=== PATIENT | female | born 1960 | race Caucasian/White ===

== ENCOUNTER 2018-06-17 03:30 | Inpatient (IN) ==
--- NOTE | 2018-06-17 04:30 | XR ---
EXAM DATE: 06/17/2018 4:26 AM EDT AGE/SEX: 58 years / Female INDICATIONS: Chest pain. CLINICAL DATA: This is the patient's initial encounter. Patient reports that signs and symptoms have been present for 1 day and indicates a pain score of 8/10. MEDICAL/SURGICAL HISTORY: . CAD. Coronary artery stent. COMPARISON: No prior exams available for comparison. FINDINGS: A single AP view of the chest demonstrates the lungs to be symmetrically aerated without evidence of mass, infiltrate or effusion. The cardiomediastinal contours are unremarkable. Osseous structures a re intact. CONCLUSION: No evidence of acute cardiopulmonary disease. Electronically signed by: Arthur Saucedo MD 06/17/2018 4:29 AM EDT
[2018-06-17 04:41] LABS: Baso % (Auto) 0.6 % (0.0-2.0); Eos # (Auto) 0.1 th/mm3 (0.0-0.4); Eos % (Auto) 2.6 % (0.0-4.0); Hematocrit 36.4 % (35.0-46.0); Hemoglobin 11.8 gm/dL (11.6-15.3); Lymph # (Auto) 1.6 th/mm3 (1.0-4.8); Lymph % (Auto) 28.7 % (9.0-44.0); Mean Corpuscular HGB Conc 32.3 % (32.0-36.0); Mean Corpuscular Hemoglobin 26.6 pg (27.0-34.0); Mean Corpuscular Volume 82.3 fL (80.0-100.0); Mean Platelet Volume 7.9 fL (7.0-11.0); Mono # (Auto) 0.4 th/mm3 (0.0-0.9); Mono % (Auto) 7.6 % (0.0-8.0); Neut # (Auto) 3.4 th/mm3 (1.8-7.7); Neut % (Auto) 60.5 % (16.0-70.0); Platelet Count 237 th/mm3 (150-450); Red Blood Count 4.43 mil/mm3 (4.00-5.30); Red Cell Distribution Width 18.3 % (11.6-17.2); White Blood Count 5.7 th/mm3 (4.0-11.0)
[2018-06-17 04:59] LABS: Alanine Aminotransferase 29 U/L (10-53); Albumin 3.6 g/dL (3.4-5.0); Anion Gap 9 meq/L (5-15); Aspartate Aminotransferase 18 U/L (15-37); Blood Urea Nitrogen 16 mg/dL (7-18); Calcium 8.2 mg/dL (8.5-10.1); Carbon Dioxide 25.5 meq/L (21.0-32.0); Chloride 110 meq/L (98-107); Glomerular Filtration Rate 44 mL/min (>89); Glucose,Random 147 mg/dL (74-106); Potassium 3.9 meq/L (3.5-5.1); Sodium 144 meq/L (136-145)
[2018-06-17 05:05] LABS: Alkaline Phosphatase 96 U/L (45-117); Total Protein 6.7 g/dL (6.4-8.2); Troponin I 0.35 ng/mL (0.02-0.05)
[2018-06-17] MEDS ORDERED: Heparin 10,000 UNITS/10 ML Vial (for IV use) IV.PUSH STA (05:18)
[2018-06-17] MEDS ORDERED: Heparin Drip 25,000 UNIT/250 ML BAG IV.CONT PRN (05:18)
--- NOTE | 2018-06-17 05:24 | ED ---
HPI General Chief Complaint: Chest Pain Stated Complaint: Chest pain Time Seen by Provider: 06/17/18 05:04 Source: patient Mode of arrival: ambulatory Limitations: no limitations History of Present Illness HPI narrative: 58-year-old female complains of chest pain retrosternal left chest and left neck with radiation to left arm. Is very mild in the ED and has a pressure-like quality. She reports a history of coronary artery disease with multiple stents. The last catheterization was about 10 years prior. She reports compliance with aspirin daily. She has been taking nitro today which has helped the pain. She reports an exertional component of the chest pain. No shortness of breath at rest. Her level of activity has been decreased from normal due to fatigue and chest pain. No cough or fever. No nausea or vomiting. Symptoms became much worse this evening prompting the ED evaluation MD complaint: chest pain STEMI Alert: No Onset (ago): day(s) Duration: improved Onset: during rest Pain location: substernal and left chest Severity: mild Quality: heaviness Pain radiation: LUE and neck Relieving factors: nitroglycerin Exacerbating factors: exertion and movement Treatments prior to arrival chest pain: aspirin and nitroglycerin Related Data Home Medications Medication Instructions Recorded Confirmed albuterol sulfate 2 puff INHALATION Q4-6H PRN 06/17/18 06/17/18 aspirin [Aspirin Childrens] 81 mg PO DAILY 06/17/18 06/17/18 fexofenadine-pseudoephedrine 1 tab PO Q12H PRN 06/17/18 06/17/18 [Georgette-D 12 Hour] irbesartan 300 mg PO DAILY 06/17/18 06/17/18 meclizine 25 mg PO TID PRN 06/17/18 06/17/18 metformin 500 mg PO BID 06/17/18 06/17/18 metoprolol tartrate 25 mg PO DAILY 06/17/18 06/17/18 nitroglycerin 0.4 mg SUBLINGUAL Q5-15M PRN 06/17/18 06/17/18 omeprazole 40 mg PO DAILY 06/17/18 06/17/18 ranitidine HCl 300 mg PO DAILY 06/17/18 06/17/18 rosuvastatin 10 mg PO DAILY 06/17/18 06/17/18 sertraline 100 mg PO DAILY 06/17/18 06/17/18 temazepam 15 mg PO HS PRN 06/17/18 06/17/18 timolol 1 drp OPHTHALMIC (EYE) BID 06/17/18 06/17/18 vitamin S77-wrvcq acid 1 mg PO DAILY 06/17/18 06/17/18 Allergies Allergy/AdvReac Type Severity Reaction Status Date / Time cephalexin [From Keflex] Allergy Rash Verified 06/17/18 03:48 gatifloxacin Allergy Anaphylaxis Verified 06/17/18 03:48 meperidine Allergy Vomiting Verified 06/17/18 03:48 nabumetone Allergy Edema Verified 06/17/18 03:48 simvastatin Allergy Anaphylaxis Verified 06/17/18 03:48 Sulfa (Sulfonamide Allergy Rash Verified 06/17/18 03:48 Antibiotics) Review of Systems ROS: all other systems reviewed are negative [facility] Medical History Medical History Hx of renal cell cancer (Acute) Hypertension (Acute) Surgical History Surgical History H/O heart artery stent (Acute) H/O partial nephrectomy (Acute) Social History Social History Substance History: No History of Abuse Second Hand Smoke Exposure: No Smoking Status: Never smoker How Often Do You Have a Drink Containing Alcohol: Monthly or less [facility] within the Last 8 Weeks: No Recent Out of Country Travel within the Last 8 Weeks: No Immunization History Tetanus Immunization: >5 Years Hx Influenza Vaccine This Season: No Exam Narrative Exam Narrative: GENERAL: 58-year-old female no acute distress pleasant well- nourished well-developed SKIN: Focused skin assessment warm/dry. HEAD: Atraumatic. Normocephalic. EYES: Pupils equal and round. No scleral icterus. No injection or drainage. ENT: No nasal bleeding or discharge. Mucous membranes pink and moist. NECK: Trachea midline. No JVD. CARDIOVASCULAR: Regular rate and rhythm. No murmur appreciated. RESPIRATORY: No accessory muscle use. Clear to auscultation. Breath sounds equal bilaterally. GASTROINTESTINAL: Abdomen soft, non-tender, nondistended. Hepatic and splenic margins not palpable. MUSCULOSKELETAL: No obvious deformities. No clubbing. No cyanosis. No edema. NEUROLOGICAL: Awake and alert. No obvious cranial nerve deficits. Motor grossly within normal limits. Normal speech. PSYCHIATRIC: Appropriate mood and affect; insight and judgment normal. Course Initial Documented Vital Signs Temperature 97.8 F 06/17/18 03:42 Pulse Rate 59 L 06/17/18 03:42 Respiratory Rate 18 06/17/18 03:42 Blood Pressure 186/81 H 06/17/18 03:42 Pulse Oximetry 98 06/17/18 03:42 Last Documented Vital Signs Temperature 97.8 F 06/17/18 03:42 Pulse Rate 58 L 06/17/18 06:02 Respiratory Rate 17 06/17/18 05:20 Blood Pressure 173/81 H 06/17/18 05:20 Pulse Oximetry 98 06/17/18 05:20 Critical Care Time Critical Care Time: Yes Total Critical Care Time: 35 Attestation: Aggregate critical care time was 35 minutes. Time to perform other separately billable procedures was not included in the critical care time. My time did not include minutes spent treating any other patients simultaneously or on activities that did not directly contribute to the patient's treatment. The services I provided to this patient were to treat and/or prevent clinically significant deterioration that could result in: Cardiopulmonary arrest, permanent disability due to myocardial injury I provided critical care services requiring my management, as noted below: Chart data review, documentation time, medication orders and management, vital sign assessments/reviewing monitor data, ordering and reviewing lab tests, ordering and interpreting/reviewing x-rays and diagnostic studies, care of the patient and discussion of the patient with the admitting physicians. Medical Decision Making MDM Narrative Medical decision making narrative: 58-year-old female with chest pain coronary artery disease history and elevated troponin 0.35. Heparin started. The patient will be admitted for treatment of NSTEMI. Nitro and ASA started prior to ED arrival. Case discussed with Dr. Snow. Patient is in no acute distress in the ED. She states her pain is very mild here. Medical Screen Exam Complete: Yes Emergency Medical Condition: Yes Differential Diagnosis Differential Diagnosis: NSTEMI, unstable angina, coronary vasospasm, PE, PTX, aortic dissection, pericarditis, myocarditis, endocarditis, PNA, esophageal disease, aneurysm, musculoskeletal etiologies, anxiety, cocaine/sympathomimetic abuse Lab Data Lab results reviewed: Yes I reviewed the patient's lab results. Lab results narrative: Troponin is 0.35 Result diagrams: 06/17/18 04:15 06/17/18 04:15 Lab Results 06/17/18 06/17/18 06/17/18 Range/Units 04:15 04:15 05:15 WBC 5.7 (4.0-11.0) th/mm3 RBC 4.43 (4.00-5.30) mil/mm3 Hgb 11.8 (11.6-15.3) gm/dL Hct 36.4 (35.0-46.0) % MCV 82.3 (80.0-100.0) fL MCH 26.6 L (27.0-34.0) pg MCHC 32.3 (32.0-36.0) % RDW 18.3 H (11.6-17.2) % Plt Count 237 (150-450) th/mm3 MPV 7.9 (7.0-11.0) fL Neut % (Auto) 60.5 (16.0-70.0) % Lymph % (Auto) 28.7 (9.0-44.0) % [place] % (Auto) 7.6 (0.0-8.0) % Eos % (Auto) 2.6 (0.0-4.0) % Baso % (Auto) 0.6 (0.0-2.0) % Neut # (Auto) 3.4 (1.8-7.7) th/mm3 Lymph # (Auto) 1.6 (1.0-4.8) th/mm3 [place] # (Auto) 0.4 (0.0-0.9) th/mm3 Eos # (Auto) 0.1 (0.0-0.4) th/mm3 Baso # (Auto) 0.0 (0.0-0.2) th/mm3 WBC Differential . Differential Comment Auto diff final PT 9.6 L (9.8-11.6) sec INR 0.9 Ratio APTT 24.4 (24.3-30.1) sec Sodium 144 (136-145) meq/L Potassium 3.9 (3.5-5.1) meq/L Chloride 110 H (98-107) meq/L Carbon Dioxide 25.5 (21.0-32.0) meq/L Anion Gap 9 (5-15) meq/L BUN 16 (7-18) mg/dL Creatinine 1.24 H (0.50-1.00) mg/dL Estimated GFR 44 L (>89) mL/min Random Glucose 147 H (74-106) mg/dL Calcium 8.2 L (8.5-10.1) mg/dL Total Bilirubin 0.3 (0.2-1.0) mg/dL AST 18 (15-37) U/L ALT 29 (10-53) U/L Alkaline Phosphatase 96 (45-117) U/L Troponin I 0.35 H (0.02-0.05) ng/mL Total Protein 6.7 (6.4-8.2) g/dL Albumin 3.6 (3.4-5.0) g/dL Imaging Data Radiologist's impression: Chest X-Ray 06/17/18 04:08 CONCLUSION: No evidence of acute cardiopulmonary disease. ECG Data Attestation: I personally reviewed and interpreted this ECG as follows: (EKG shows a sinus rhythm with normal axis intervals and a rate of 54 no acute ischemic injury pattern) Discharge Plan Discharge Disposition Patient Disposition: 30 Still Patient Physicians Team ED Provider: Aj Neal Primary Care Provider: UNKNOWN, Rxs /Orders / Referrals /Forms Prescriptions: No Action metformin 500 mg Tablet 500 mg PO BID RF: 0 ranitidine HCl 300 mg Tablet 300 mg PO DAILY RF: 0 sertraline 100 mg Tablet 100 mg PO DAILY RF: 0 omeprazole 40 mg Capsule,Delayed Release(Dr/Ec) 40 mg PO DAILY RF: 0 temazepam 15 mg Capsule 15 mg PO HS PRN (Reason: Insomnia) RF: 0 meclizine 25 mg Tablet 25 mg PO TID PRN (Reason: Dizziness) RF: 0 timolol 0.5 % Drops 1 drp OPHTHALMIC (EYE) BID RF: 0 nitroglycerin 0.4 mg Tablet, Sublingual 0.4 mg SUBLINGUAL Q5-15M PRN (Reason: Chest Pain) RF: 0 aspirin [Aspirin Childrens] 81 mg Tablet,Chewable 81 mg PO DAILY RF: 0 fexofenadine-pseudoephedrine [Georgette-D 12 Hour] 60-120 mg Tablet Extended Release 12 Hr 1 tab PO Q12H PRN (Reason: Allergic Reaction) RF: 0 irbesartan 300 mg Tablet 300 mg PO DAILY RF: 0 rosuvastatin 10 mg Tablet 10 mg PO DAILY RF: 0 metoprolol tartrate 25 mg Tablet 25 mg PO DAILY RF: 0 vitamin D13-vnnih acid 0.5-1 mg Tablet 1 mg PO DAILY RF: 0 albuterol sulfate 90 mcg/actuation Aerosol Powdr Breath Activated 2 puff INHALATION Q4-6H PRN (Reason: Shortness Of Breath) RF: 0 Discharge Instructions Patient Printed Instructions: Chest Pain (ED) Status ED Status: With Doctor
[2018-06-17] MEDS ORDERED: Bisacodyl 10 MG Supp RECTAL PRN (05:56)
[2018-06-17] MEDS ORDERED: Temazepam 15 MG Capsule PO PRN (05:57)
[2018-06-17] MEDS ORDERED: Dextrose 50% in Water 50 ML Vial IV.PUSH PRN (05:58)
[2018-06-17 06:04] LABS: Activated Partial Thrombo Time 24.4 sec (24.3-30.1); INR 0.9 Ratio; Prothrombin Time 9.6 sec (9.8-11.6)
--- NOTE | 2018-06-17 09:09 | P.HPIM ---
History of Present Illness Primary Care Physician: UNKNOWN Chief Complaint: chest pain History of Present Illness: patient is a 58 y/o female with history of CAD- s/p stent placement,hypertension , dyslipidemia.diabetes mellitus and kidney cancer, presented to ER with chest pain. she says that she's had substernal chest pain for the past three days but yesterday when she was walking her dog the pain got worse and had some radiation to the left arm which made her to seek medical attention. she had some sob but denies nausea,vomiting, or diaphoresis. she was pain free at the time of my evaluation. Inpatient Certification: I certify that the inpatient services were ordered in accordance with Medicare regulations governing the order. This includes certification that hospital inpatient services are reasonable and necessary and in the case of services not specified as inpatient-only under 42 CFR 419.22(n), that they are appropriately provided as inpatient services in accordance to with the 2-midnight benchmark under 43 CFR 412.3(e) Estimated Total Length of Stay (Days): 2 Plans for Post Hospital Care: Not yet determined Review of Systems All other systems reviewed negative except as stated in HPI PMFSH - History History Provided By: Patient - Medical History Medical History: Medical History (Last Reviewed 06/17/18 @ 09:05 by Juan Manuel Moody MD) Diabetes mellitus Dyslipidemia Hx of renal cell cancer Hypertension - Surgical History Surgical History: Surgical History (Last Reviewed 06/17/18 @ 09:05 by Juan Manuel Moody MD) H/O heart artery stent H/O partial nephrectomy - Family History Family History: Family History (Last Updated 06/17/18 @ 09:05 by Juan Manuel Moody MD) Other Family history of acute myocardial infarction - Social History I have reviewed the patient's Social History: Yes - Tobacco History Second Hand Smoke Exposure: No Tobacco Use In Past 30 Days: No Smoking Status: Never smoker - Alcohol History How Often Do You Have a Drink Containing Alcohol: Monthly or less - Substance Use History Substance History: No History of Abuse - Travel History Recent Travel in the [place] Within the Last 8 Weeks: No Recent Travel Out of the Country Within the Last 8 Weeks: No - Immunization History Tetanus Immunization: >5 Years Hx Influenza Vaccine This Season: No Medications and Allergies Active Medications: Active Medications Acetaminophen (Tylenol) 650 mg PO Q4H PRN PRN Reason: Temp > 100.4 Al Hydroxide/Mg Hydroxide (Milk Of Magnesia Liq) 30 ml PO Q12H PRN PRN Reason: Mild Constipation Aspirin (Aspirin Chew) 81 mg PO DAILY [facility] Bisacodyl (Dulcolax Supp) 10 mg RECTAL DAILY PRN PRN Reason: SEVERE CONSITIPATION Cyanocobalamin (Vitamin B12) 100 mcg PO DAILY [facility] Dextrose (D50w Vial) 50 ml IV.PUSH UNSCH PRN PRN Reason: PER HYPOGLYCEMIA PROTOCOL Glucagon (Glucagon Inj) 1 mg OTHER PRN PRN PRN Reason: for Hypoglycemia Protocol Heparin Sodium/Dextrose (Heparin/D5w 25,000 U/250 Ml) 25,000 unit in 250 mls @ 0 mls/hr IV.CONT TITRATE PRN; Protocol PRN Reason: Per Protocol Last Admin: 06/17/18 06:11 Dose: 1,000 units/hr, 10 mls/hr Sodium Chloride (Ns Inj) 1,000 mls @ 100 mls/hr IV.CONT .Q10H [facility] Insulin Aspart (Novolog Insulin Correctional Sugar Inj) 0 unit SQ ACHS FRANCK; Protocol Lactulose (Lactulose Liq) 30 ml PO DAILY PRN PRN Reason: SEVERE CONSITIPATION Metoprolol Tartrate (Lopressor) 25 mg PO DAILY [facility] Morphine Sulfate (Morphine Inj) 2 mg IV.PUSH Q4H PRN PRN Reason: PAIN 6-10 Nitroglycerin (Nitro-Bid 2% Oint) 0.5 inch TOPICAL Q6HR PRN PRN Reason: CHEST PAIN Ondansetron HCl (Zofran Inj) 4 mg IV.PUSH Q6H PRN PRN Reason: NAUSEA OR VOMITING Pantoprazole Sodium (Protonix) 40 mg PO DAILY [facility] Pt Own Crestor 10 Mg 0 each PO DAILY [facility] Senna/Docusate Sodium (Ning-Colace) 1 tab PO BID [facility] Sennosides (Senokot) 17.2 mg PO Q12H PRN PRN Reason: Moderate Constipation Sertraline HCl (Zoloft) 100 mg PO DAILY [facility] Temazepam (Restoril) 15 mg PO HS PRN PRN Reason: Insomnia Timolol Maleate (Timoptic 0.5% Drops) 1 drops EACH EYE BID [facility] Allergies Allergy/AdvReac Type Severity Reaction Status Date / Time cephalexin [From Keflex] Allergy Rash Verified 06/17/18 03:48 gatifloxacin Allergy Anaphylaxis Verified 06/17/18 03:48 meperidine Allergy Vomiting Verified 06/17/18 03:48 nabumetone Allergy Edema Verified 06/17/18 03:48 simvastatin Allergy Anaphylaxis Verified 06/17/18 03:48 Sulfa (Sulfonamide Allergy Rash Verified 06/17/18 03:48 Antibiotics) Home Medications Medication Instructions Recorded Confirmed Type albuterol sulfate 2 puff INHALATION Q4-6H PRN 06/17/18 06/17/18 History aspirin [Aspirin Childrens] 81 mg PO DAILY 06/17/18 06/17/18 History fexofenadine-pseudoephedrine 1 tab PO Q12H PRN 06/17/18 06/17/18 History [Georgette-D 12 Hour] irbesartan 300 mg PO DAILY 06/17/18 06/17/18 History meclizine 25 mg PO TID PRN 06/17/18 06/17/18 History metformin 500 mg PO BID 06/17/18 06/17/18 History metoprolol tartrate 25 mg PO DAILY 06/17/18 06/17/18 History nitroglycerin 0.4 mg SUBLINGUAL Q5-15M PRN 06/17/18 06/17/18 History omeprazole 40 mg PO DAILY 06/17/18 06/17/18 History ranitidine HCl 300 mg PO DAILY 06/17/18 06/17/18 History rosuvastatin 10 mg PO DAILY 06/17/18 06/17/18 History sertraline 100 mg PO DAILY 06/17/18 06/17/18 History temazepam 15 mg PO HS PRN 06/17/18 06/17/18 History timolol 1 drp OPHTHALMIC (EYE) BID 06/17/18 06/17/18 History vitamin S13-dmaam acid 1 mg PO DAILY 06/17/18 06/17/18 History Exam Vital signs: Vital Signs 06/17/18 03:42 06/17/18 04:14 06/17/18 05:20 Temperature 97.8 F Pulse Rate 59 L 55 L 53 L Respiratory Rate 18 17 Blood Pressure 186/81 H 173/81 H Pulse Oximetry 98 98 98 06/17/18 06:02 06/17/18 06:06 06/17/18 07:05 Temperature Pulse Rate 58 L 54 L Respiratory Rate 17 Blood Pressure 160/70 H Pulse Oximetry 98 96 Intake & Output 06/16/18 06/17/18 06/17/18 18:59 06:59 18:59 Weight 91.626 kg Other: # Voids 1 - Constitutional no acute distress - Routine HEENT Exam Eye: Present: PERRL - Routine Neck Exam Present: supple - Routine Respiratory Exam Present: CTA bilaterally - Routine Cardiovascular Exam Present: RRR - Routine Abdominal Exam Present: soft - Routine Extremities Exam Comments: no pedal edema. - Routine Neurological Exam Present: alert, oriented X3 Results - Labs CBC & Chem 7: 06/17/18 08:45 06/17/18 04:15 Labs: Short CBC 06/17/18 Range/Units 04:15 WBC 5.7 (4.0-11.0) th/mm3 Hgb 11.8 (11.6-15.3) gm/dL Hct 36.4 (35.0-46.0) % Plt Count 237 (150-450) th/mm3 BMP 06/17/18 04:15 Sodium 144 Potassium 3.9 Chloride 110 H Carbon Dioxide 25.5 BUN 16 Creatinine 1.24 H Calcium 8.2 L Cardiac Enzymes 06/17/18 Range/Units 04:15 Troponin I 0.35 H (0.02-0.05) ng/mL Liver Function 06/17/18 Range/Units 04:15 Total Bilirubin 0.3 (0.2-1.0) mg/dL AST 18 (15-37) U/L ALT 29 (10-53) U/L Alkaline Phosphatase 96 (45-117) U/L Albumin 3.6 (3.4-5.0) g/dL - Imaging Impressions Chest X-Ray 06/17/18 04:08 CONCLUSION: No evidence of acute cardiopulmonary disease. Caprini VTE Risk Assessment Caprini VTE Risk Assessment: Moderate/High Risk (score >= 2) Caprini Risk Assessment Model: Point Value = 1 Point Value = 2 Point Value = 3 Point Value = 5 Age 41-60 Minor surgery BMI > 25 kg/m2 Swollen legs Varicose veins or History of unexplained or recurrent spontaneous Oral contraceptives or hormone replacement Sepsis (< 1 month) Serious lung disease, including pneumonia (< 1 month) Abnormal pulmonary function Acute myocardial infarction Congestive heart failure (< 1 month) History of inflammatory bowel disease Medical patient at bed rest Age 61-74 Arthroscopic surgery Major open surgery (> 45 min) Laparoscopic surgery (> 45 min) Malignancy Confined to bed (> 72 hours) Immobilizing plaster cast Central venous access Age >= 75 History of VTE Family history of VTE Factor V Leiden Prothrombin [id number] Lupus anticoagulant Anticardiolipin antibodies Elevated serum homocysteine Heparin-induced thrombocytopenia Other congenital or acquired thrombophilia Stroke (< 1 month) Elective arthroplasty Hip, pelvis, or leg fracture Acute spinal cord injury (< 1 month) Prophylaxis Regimen: Total Risk Factor Score Risk Level Prophylaxis Regimen 0-1 Low Early ambulation 2 Moderate Order ONE of the following: *Sequential Compression Device (SCD) *Heparin 5000 units SQ BID 3-4 Higher Order ONE of the following medications: *Heparin 5000 units SQ TID *Enoxaparin/Lovenox 40 mg SQ daily (WT < 150 kg, CrCl > 30 mL/min) *Enoxaparin/Lovenox 30 mg SQ daily (WT < 150 kg, CrCl > 10-29 mL/min) *Enoxaparin/Lovenox 30 mg SQ BID (WT < 150 kg, CrCl > 30 mL/min) AND/OR *Sequential Compression Device (SCD) 5 or more Highest Order ONE of the following medications: *Heparin 5000 units SQ TID (Preferred with Epidurals) *Enoxaparin/Lovenox 40 mg SQ daily (WT < 150 kg, CrCl > 30 mL/min) *Enoxaparin/Lovenox 30 mg SQ daily (WT < 150 kg, CrCl > 10-29 mL/min) *Enoxaparin/Lovenox 30 mg SQ BID (WT < 150 kg, CrCl > 30 mL/min) AND *Sequential Compression Device (SCD) Assessment and Plan - Plan A/P -NSTEMI continue aspirin, Heparin drip and metoprolol- trend the cardiac enzymes - cardiology consulted. -hypertension; resume Metoprolol- continue to monitor and adjust the regimen as needed. -dyslipidemia; continue Crestor. -diabetes mellitus; on accu-check with SSI -renal insufficiency- with unknown duration/ with history of partial nephrectomy - continue with IV fluid and monitor. -DVT prophylaxis; on Heparin drip. Discussed Condition With: the patient. Discharge Planning: awaiting cardiology evaluation.
[2018-06-17] MEDS: Sertraline 100 MG Tablet PO SCH (09:57)
[2018-06-17] MEDS: Metoprolol Tartrate 25 MG Tablet PO SCH (09:57)
[2018-06-17] MEDS: Timolol 0.5% Drops 5 ML Bottle EACH EYE SCH ×2 (09:58→20:21)
[2018-06-17] MEDS: CRESTOR 10 MG PO SCH (09:58)
[2018-06-17] MEDS: Senna/Docusate Sodium 8.6/50 MG Tablet PO SCH ×2 (09:58→20:20)
[2018-06-17] MEDS: Morphine Inj 4 MG/ML Vial IV.PUSH PRN ×4 (10:00→20:21)
[2018-06-17] MEDS: Insulin NovoLOG Aspart Correctional Sugar Inj SQ SCH ×4 (10:06→20:20)
[2018-06-17 10:21] LABS: Hematocrit 34.5 % (35.0-46.0); Hemoglobin 11.4 gm/dL (11.6-15.3); Mean Corpuscular HGB Conc 33.1 % (32.0-36.0); Mean Corpuscular Hemoglobin 26.7 pg (27.0-34.0); Mean Corpuscular Volume 80.7 fL (80.0-100.0); Mean Platelet Volume 8.1 fL (7.0-11.0); Platelet Count 232 th/mm3 (150-450); Red Blood Count 4.27 mil/mm3 (4.00-5.30); White Blood Count 5.9 th/mm3 (4.0-11.0)
[2018-06-17 11:15] LABS: Chol/HDL Ratio 3.84 Ratio; HDL Cholesterol 44.5 mg/dL (40.0-60.0)
--- NOTE | 2018-06-17 11:32 | ECG ---
Date Performed: 06/17/2018 Time Performed: 04:18:59 PTAGE: 58 years EKG: SINUS BRADYCARDIA MODERATE VOLTAGE CRITERIA FOR LVH, CONSIDER NORMAL VARIANT NONSPECIFIC T- WAVE ABNORMALITY BORDERLINE ECG NO PREVIOUS TRACING DOCTOR: Johny Duarte Interpretating Date/Time 06/17/2018 11:29:37
[2018-06-17 11:37] LABS: Troponin I 1.06 ng/mL (0.02-0.05)
[2018-06-17 12:46] LABS: Hemoglobin A1c 6.4 % (4.3-6.0)
[2018-06-17] MEDS: Sod Chloride 0.9% Inj 1,000 ML IV.CONT SCH ×2 (14:24→15:28)
[2018-06-17] MEDS ORDERED: Nitroglycerin Drip Premix 50 MG/250 ML BOTTLE IV.CONT PRN (18:31)
[2018-06-17] MEDS: Acetaminophen 325 MG Tablet PO PRN (19:12)
--- NOTE | 2018-06-17 20:24 | MB ---
cc: Marlon Neal DO DATE: 06/17/2018 REASON FOR CONSULTATION: NSTEMI. HISTORY OF PRESENT ILLNESS: Vernell Joshi is a pleasant 58-year-old female who presented to [facility] Emergency Room due to chest pain. She states that she started noticing chest pain about 3 days before which appeared to be in the center of her chest and radiating down her left arm. The day before coming to the emergency room, she had walked her dogs but only went half the way she normally would and came back immediately and sat down. She was unable to find her nitroglycerin and the pain was continuous. By the time her came home and found her nitroglycerin, she had somewhat relaxed and took a nitroglycerin. In the middle of the night, she started having more significant pain and woke her up and said, "We need to go to the emergency room." On arrival, she was found to have an elevated troponin. In seeing her, she states that she is feeling better with no current chest pain or shortness of breath. She recently moved down here from [place]. Previously, she had 3 stents placed with 2 in the LAD and 1 in another vessel, which she is unsure. At that time, she had stress testing done and it was negative, but then had a cardiac catheterization and stenting was necessary, so she is hesitant to undergo stress testing. She also notes that after having her partial nephrectomy, she has had significant trouble with her blood pressure. Afterwards, she was quite hypotensive and then since then, she has been having episodes of hypertension. PAST MEDICAL HISTORY: 1. Diabetes. 2. Dyslipidemia. 3. Renal cell cancer. 4. Hypertension. PAST SURGICAL HISTORY: 1. Three previous stents (believed to be in 2007) with 2 in the LAD and 1 in an unknown vessel. Her most recent cardiac catheterization in 2011, she believes, was negative. 2. Partial nephrectomy for renal cell cancer. ALLERGIES: 1. CEPHALEXIN. 2. GATIFLOXACIN. 3. MEPERIDINE. 4. NABUMETONE. 5. ZOCOR. 6. SULFA. MEDICATIONS: 1. Metformin 500 mg b.i.d. 2. Aspirin 81 mg daily. 3. Timolol to each eye b.i.d. 4. Crestor 10 mg daily. 5. Georgette-D 60/120 every 12 hours as needed. 6. Temazepam 15 mg every night as needed. 7. Meclizine 25 mg t.i.d. as needed. 8. Ranitidine 300 mg daily. 9. Metoprolol tartrate 25 mg daily. 10. Irbesartan 300 mg daily. 11. Zoloft 100 mg daily. 12. Nitro sublingual as needed. 13. Vitamin B12/folic acid. 14. Albuterol 2 puffs every 4-6 hours as needed. 15. Omeprazole 40 mg daily. FAMILY HISTORY: Denies premature coronary artery disease or sudden cardiac within the family. SOCIAL HISTORY: The patient denies tobacco, alcohol or drug abuse. REVIEW OF SYSTEMS: Fourteen systems were reviewed including osteopathic. Pertinent positives and negatives above, otherwise negative. PHYSICAL EXAMINATION: VITAL SIGNS: Temperature 98.6, heart rate 55, blood pressure 169/72, respirations 17, pulse oximetry 97% on room air. GENERAL: The patient appears well, in no acute distress, alert, awake and oriented x 3. HEENT: Extraocular muscles intact. Mucous membranes moist. NECK: Supple. No JVD at 45 degrees. No carotid bruits heard bilaterally. Carotid upstroke is brisk in nature. HEART: Bradycardic but regular rhythm. Positive first and second heart sounds with no noted murmurs, gallops or rubs. LUNGS: Clear to auscultation bilaterally. No wheezes, rales or rhonchi. ABDOMEN: Soft, nontender, nondistended. No organomegaly noted. EXTREMITIES: Show no clubbing, cyanosis or edema. Femoral and distal pulses are intact bilaterally. NEUROLOGIC: No focal deficits. SKIN: Warm, dry and intact. OSTEOPATHIC: Mild lordosis. No kyphoscoliosis or paraspinal tender points. LABORATORY DATA: Hemoglobin 11.4, hematocrit 34.5, platelets 232. Potassium 3.9, BUN 16, creatinine 1.24. Troponin 1.06. Electrocardiogram (06/17/2018 at 0723 hours), sinus rhythm, voltage criteria for LVH, nonspecific ST-T wave changes. IMPRESSION: 1. Non-ST elevation myocardial infarction. 2. Chest pain concerning for coronary insufficiency. 3. Hypertension. 4. Hyperlipidemia. 5. Diabetes mellitus. 6. Acute kidney injury versus chronic kidney disease. 7. History of renal cell cancer, status post partial nephrectomy. RECOMMENDATIONS: 1. Ms. Joshi presented with chest pain concerning for coronary insufficiency and was found to have an elevated troponin. 2. We will plan for a cardiac catheterization tomorrow. Risks, benefits and alternatives were explained to her and she consented to such. 3. She has been started on a heparin drip. 4. We will check a 2-D echo to look at her overall left ventricular function, cardiac structure and possible valvulopathies. 5. Metformin will be held in anticipation of cardiac catheterization. 6. Home medications will need to be reviewed before discharge. First, she needs better blood pressure control. Second, she is quite bradycardic on a low dose of metoprolol and this may need to be held. Lastly, as she does have labile hypertension and coronary artery disease, I would opt against taking Georgette-D due to the pseudoephedrine in it. 7. Further recommendations will be made after coronary visualization. Thank you for allowing me to see Vernell Joshi. If there are any questions, please do not hesitate to call. DO THU Breen/darrell , 05:05 PM , 05:19 PM
[2018-06-18] MEDS: Morphine Inj 4 MG/ML Vial IV.PUSH PRN ×2 (02:59→09:28)
[2018-06-18] MEDS: Sod Chloride 0.9% Inj 1,000 ML IV.CONT SCH ×3 (03:17→21:21)
[2018-06-18 07:13] LABS: Baso % (Auto) 0.5 % (0.0-2.0); Eos # (Auto) 0.2 th/mm3 (0.0-0.4); Eos % (Auto) 3.1 % (0.0-4.0); Hematocrit 32.6 % (35.0-46.0); Hemoglobin 10.8 gm/dL (11.6-15.3); Lymph # (Auto) 1.7 th/mm3 (1.0-4.8); Mean Corpuscular HGB Conc 33.1 % (32.0-36.0); Mean Corpuscular Hemoglobin 26.8 pg (27.0-34.0); Mean Corpuscular Volume 81.2 fL (80.0-100.0); Mean Platelet Volume 7.5 fL (7.0-11.0); Mono # (Auto) 0.4 th/mm3 (0.0-0.9); Mono % (Auto) 7.3 % (0.0-8.0); Neut # (Auto) 3.6 th/mm3 (1.8-7.7); Neut % (Auto) 60.1 % (16.0-70.0); Platelet Count 204 th/mm3 (150-450); Red Blood Count 4.02 mil/mm3 (4.00-5.30); Red Cell Distribution Width 18.1 % (11.6-17.2); White Blood Count 5.9 th/mm3 (4.0-11.0)
--- NOTE | 2018-06-18 07:45 | P.PN ---
Subjective Interval history: The patient is in bed says she feels improved today. No more chest pain overnight no chest pressure. No diaphoresis or nausea. She however complains of headaches. She is off nitro and she is managed for pain with morphine now. Having 2D echo. Plan for cardiac cath today Physical Exam Vital signs: Vital Signs 06/17/18 10:00 06/17/18 11:55 06/17/18 13:18 Temperature Pulse Rate 55 L 55 L 60 Respiratory Rate 17 19 15 Blood Pressure 169/72 H 185/77 H 160/69 H Pulse Oximetry 97 96 95 06/17/18 15:00 06/17/18 15:26 06/17/18 15:27 Temperature 98.6 F Pulse Rate 48 L 47 L 48 L Respiratory Rate 18 Blood Pressure 138/62 Pulse Oximetry 96 06/17/18 16:36 06/17/18 17:04 06/17/18 19:00 Temperature 98 F Pulse Rate 49 L 51 L 51 L Respiratory Rate 20 Blood Pressure 136/73 Pulse Oximetry 98 06/17/18 21:16 06/17/18 21:17 06/17/18 22:00 Temperature Pulse Rate 50 L 52 L 52 L Respiratory Rate 22 Blood Pressure Pulse Oximetry 06/17/18 23:00 06/18/18 00:00 06/18/18 00:57 Temperature 98.3 F Pulse Rate 53 L 45 L 48 L Respiratory Rate 20 Blood Pressure 131/65 Pulse Oximetry 98 06/18/18 01:40 06/18/18 02:00 06/18/18 02:54 Temperature 97.6 F Pulse Rate 48 L 52 L Respiratory Rate 16 Blood Pressure 131/67 Pulse Oximetry 94 L 96 06/18/18 03:00 06/18/18 03:18 06/18/18 04:00 Temperature Pulse Rate 48 L 52 L Respiratory Rate 18 Blood Pressure Pulse Oximetry 96 06/18/18 05:00 06/18/18 06:00 Temperature Pulse Rate 48 L 52 L Respiratory Rate Blood Pressure Pulse Oximetry Intake & Output 06/17/18 06/18/18 06/18/18 18:59 06:59 18:59 Intake Total 120 / 120 920 / 920 Output Total 350 / 350 800 / 800 Balance -230 / -230 120 / 120 Weight 93.5 kg Intake: IV 200 / 200 NS Inj 1,000 ML @ 100 mls/hr IV 200 / 200 .CONT .Q10H [facility] Rx#:[id number] Oral 120 / 120 720 / 720 Output: Urine 350 / 350 800 / 800 Other: # Voids 1 Narrative: GENERAL: Very pleasant 58-year-old female in bed appears in not acute distress at this time. CARDIOVASCULAR: Regular rate and rhythm without murmurs, gallops, or rubs. RESPIRATORY: Breath sounds equal bilaterally. No accessory muscle use. GASTROINTESTINAL: Abdomen soft, non-tender, nondistended. MUSCULOSKELETAL: No cyanosis, or edema. BACK: Nontender without obvious deformity. No CVA tenderness. Results - Labs CBC & Chem 7: 06/18/18 07:00 06/18/18 07:00 Laboratory Results - last 24 hr 06/17/18 06/17/18 06/17/18 08:45 08:45 09:45 WBC 5.9 RBC 4.27 Hgb 11.4 L Hct 34.5 L MCV 80.7 MCH 26.7 L MCHC 33.1 RDW 18.0 H Plt Count 232 MPV 8.1 Neut % (Auto) Lymph % (Auto) [place] % (Auto) Eos % (Auto) Baso % (Auto) Neut # (Auto) Lymph # (Auto) [place] # (Auto) Eos # (Auto) Baso # (Auto) WBC Differential Differential Comment APTT POC Glucose Hemoglobin A1c 6.4 H Troponin I 1.06 H* D Triglycerides 263 H Cholesterol 171 LDL Cholesterol, Calc 74 HDL Cholesterol 44.5 Cholesterol/HDL Ratio 3.84 06/17/18 06/17/18 06/17/18 11:15 16:08 16:16 WBC RBC Hgb Hct MCV MCH MCHC RDW Plt Count MPV Neut % (Auto) Lymph % (Auto) [place] % (Auto) Eos % (Auto) Baso % (Auto) Neut # (Auto) Lymph # (Auto) [place] # (Auto) Eos # (Auto) Baso # (Auto) WBC Differential Differential Comment APTT 37.7 H D 41.5 H POC Glucose 101 Hemoglobin A1c Troponin I Triglycerides Cholesterol LDL Cholesterol, Calc HDL Cholesterol Cholesterol/HDL Ratio 06/17/18 06/17/18 06/17/18 16:16 19:22 23:16 WBC RBC Hgb Hct MCV MCH MCHC RDW Plt Count MPV Neut % (Auto) Lymph % (Auto) [place] % (Auto) Eos % (Auto) Baso % (Auto) Neut # (Auto) Lymph # (Auto) [place] # (Auto) Eos # (Auto) Baso # (Auto) WBC Differential Differential Comment APTT 43.5 H POC Glucose 141 H Hemoglobin A1c Troponin I 2.61 H* D Triglycerides Cholesterol LDL Cholesterol, Calc HDL Cholesterol Cholesterol/HDL Ratio 06/18/18 06/18/18 06/18/18 07:00 07:00 07:43 WBC 5.9 RBC 4.02 Hgb 10.8 L Hct 32.6 L MCV 81.2 MCH 26.8 L MCHC 33.1 RDW 18.1 H Plt Count 204 MPV 7.5 Neut % (Auto) 60.1 Lymph % (Auto) 29.0 [place] % (Auto) 7.3 Eos % (Auto) 3.1 Baso % (Auto) 0.5 Neut # (Auto) 3.6 Lymph # (Auto) 1.7 [place] # (Auto) 0.4 Eos # (Auto) 0.2 Baso # (Auto) 0.0 WBC Differential . Differential Comment Auto diff final APTT 46.3 H POC Glucose 111 H Hemoglobin A1c Troponin I Triglycerides Cholesterol LDL Cholesterol, Calc HDL Cholesterol Cholesterol/HDL Ratio Assessment and Plan - Plan NSTEMI H/o CAD with 2 sents placement continue aspirin, Heparin drip and metoprolol- cardiac enzymes trending up - cardiology consulted. -With headaches from nitro. DC nitro and patient is on pain management with morphine IV Plan for cardiac cath Hypertension: resume Metoprolol- continue to monitor and adjust the regimen as needed. Dyslipidemia: continue Crestor. Lipid panel reviewed Diabetes mellitus: on accu-check with SSI Renal insufficiency: with unknown duration/ with history of partial nephrectomy - continue with IV fluid and monitor. -DVT prophylaxis; on Heparin drip. Discharge Planning: When cleared by cardiology
[2018-06-18 07:56] LABS: Alanine Aminotransferase 29 U/L (10-53); Albumin 3.3 g/dL (3.4-5.0); Alkaline Phosphatase 65 U/L (45-117); Anion Gap 9 meq/L (5-15); Aspartate Aminotransferase 44 U/L (15-37); Blood Urea Nitrogen 13 mg/dL (7-18); Calcium 7.9 mg/dL (8.5-10.1); Chloride 110 meq/L (98-107); Glomerular Filtration Rate 60 mL/min (>89); Glucose,Random 107 mg/dL (74-106); Sodium 145 meq/L (136-145); Total Protein 6.1 g/dL (6.4-8.2)
[2018-06-18] MEDS: Senna/Docusate Sodium 8.6/50 MG Tablet PO SCH ×2 (09:28→20:16)
[2018-06-18] MEDS: Acetaminophen 325 MG Tablet PO PRN ×2 (09:29→20:15)
[2018-06-18] MEDS: Metoprolol Tartrate 25 MG Tablet PO SCH (09:31)
[2018-06-18] MEDS: Sertraline 100 MG Tablet PO SCH (09:34)
[2018-06-18] MEDS: CRESTOR 10 MG PO SCH (10:35)
[2018-06-18] MEDS: Insulin NovoLOG Aspart Correctional Sugar Inj SQ SCH ×4 (10:35→22:28)
[2018-06-18] MEDS: Timolol 0.5% Drops 5 ML Bottle EACH EYE SCH ×2 (10:36→21:21)
--- NOTE | 2018-06-18 10:45 | ECHRPT ---
Indication: CORONARY ATHEROSCLEROSIS CONCLUSIONS The left ventricular systolic function is hyperdynamic with an estimated ejection fraction in the ra nge of 65- 70%. Mild concentric left ventricular hypertrophy with normal wall thickness. No regional wall motion abnormalities. Findings consistent with Grade 2 diastolic dysfunction, Mild mitral valve regurgitation. IVC not well visualized. No prior echo for comparision. BP: / HR: 53 Rhythm: Sinus MEASUREMENTS (Male / Female) Normal Values Technical Quality:Fair 2D ECHO LV Diastolic Diameter PLAX 5.3 cm 4.2 - 5.9 / 3.9 - 5.3 cm LV Systolic Diameter PLAX 3.6 cm IVS Diastolic Thickness 1.1 cm 0.6 - 1.0 / 0.6 - 0.9 cm LVPW Diastolic Thickness 1.1 cm 0.6 - 1.0 / 0.6 - 0.9 cm LV Relative Wall Thickness 0.4 RV Internal Dim ED PLAX 2.4 cm LVOT Diameter 1.9 cm Aortic Root Diameter 3.0 cm LA Systolic Diameter LX 3.9 cm 3.0 - 4.0 / 2.7 - 3.8 cm M-MODE AV Cusp Separation MM 1.9 cm DOPPLER AV Peak Velocity 185.0 cm/s AV Peak Gradient 13.7 mmHg AV Mean Gradient 7.0 mmHg AV Velocity Time Integral 39.2 cm LVOT Peak Velocity 116.0 cm/s LVOT Peak Gradient 5.4 mmHg LVOT Velocity Time Integral 24.9 cm AV Area Cont Eq vti 1.8 cm AV Area Cont Eq pk 1.8 cm Mitral E Point Velocity 82.4 cm/s Mitral A Point Velocity 78.5 cm/s Mitral E to A Ratio 1.0 LV E' Lateral Velocity 11.1 cm/s Mitral E to LV E' Lateral Ratio 7.4 LV E' Septal Velocity 4.7 cm/s Mitral E to LV E' Septal Ratio 17.6 TR Peak Velocity 198.0 cm/s TR Peak Gradient 15.7 mmHg Right Atrial Pressure 10.0 mmHg Pulmonary Artery Systolic Pressu 25.7 mmHg Right Ventricular Systolic Press 25.7 mmHg PV Peak Velocity 82.0 cm/s PV Peak Gradient 2.7 mmHg FINDINGS LEFT VENTRICLE Normal left ventricular size. Mild concentric left ventricular hypertrophy. The left ventricular systolic function is hyperdynamic with an estimated ejection fraction in the ra nge of 65- 70%. Grade 2 diastolic dysfunciton. RIGHT VENTRICLE Normal right ventricular size and systolic function. LEFT ATRIUM The left atrial size is normal. RIGHT ATRIUM The right atrial size is normal. ATRIAL SEPTUM The interatrial septum not well visualized. AORTA The aortic root and proximal ascending aorta are normal in size on limited imaging. MITRAL VALVE Mild mitral valve regurgitation. AORTIC VALVE Aortic valve sclerosis is present. TRICUSPID VALVE There is trace tricuspid valve regurgitation. The estimated pulmonary arterial pressure is 25.7 mmHg. PULMONARY VALVE No pulmonary valve regurgitation or stenosis. VESSELS The inferior vena cava was not well visualized. PERICARDIUM No pericardial effusion. Lyn Gomez MD (Electronically Signed) Final Date:18 June 2018 10:44
[2018-06-18] MEDS ORDERED: Heparin/NS PF Inj 1,000 ML ONE (11:00)
[2018-06-18] MEDS ORDERED: fentaNYL Citrate Inj 100 MCG/2 ML Ampul ONE ×2 (11:00→12:36)
[2018-06-18] MEDS ORDERED: Heparin 10,000 UNITS/10 ML Vial (for IV use) ONE ×2 (11:00→11:42)
[2018-06-18] MEDS ORDERED: Heparin/NS PF Inj 500 ML ONE (11:56)
[2018-06-18] MEDS ORDERED: Misc Info for Pharmacy OTHER STA (13:06)
--- NOTE | 2018-06-18 13:07 | CATHPROC ---
Linio HIS Report Study Information Study Number Admission Scheduled Start Study Start [id number] Jun 17 2018 6:15AM 06/18/2018 Jun 18 2018 10:53AM [facility] Service Cardiac Catheterization Admit Source Facility Department Emergency department [facility] - Metal Dealer Physician and Clinical Staff Initial Marlon Lombardo Tube Making Machine Operator Leti Cedeño,JULIANNE Tube Making Machine Operator Kiki Paul,JULIANNE Recorder Ana Nguyen,RT(R) Recorder Ayana Dorado RCIS TECH2 Scrub Neymar Perez,RT(R) Procedures Performed Procedure Location (Site) Vessel Name Coronary Angiograms LCA Left Coronary Coronary Angiograms RCA Right Coronary Drug Eluting Inflatio RCA Dist Right Coronary L Heart Cath PTCA RCA Dist Right Coronary Wire insertion Fem Art (right) Femoral Art Equipment Time Facing Baster Description Size Mfg Part Number Used/Scraped [id number] 12:29 [employer] WIRE, ASAHI GRANDSLAM 180CM 180CM Used *[id number] WIRE, BALANCE MIDDLEWEIGHT [id number] 12:13 [employer] 190CM Used 190CM *[id number] TRANSDUCER, TRUWAVE [id number] 11:36 DING HORTON * Used W/STOCKCOCK *[id number] BALLOON, 2.0 [place] [id number] 12:37 [employer]OSTON [employer] 2.0 12MM Used QUANTUM APEX MR *[id number] 12:17 [employer] BALLOON, 2.0 15MM EMERGE MR 2.0 15MM Used *[id number] [employer]/ EP 11:42 GUIDEWIRE, BMW 190CM 190CM 6720 Used PACER INTRODUCER SET, 12:01 [employer]. FR 5 [id number] *[id number] Used MICROPUNCTURE STIFF [phone] *[id number] 670-110-00 *[id number] 534-518T *1457560 670-082-00 *7319223 670-082-00 *7619482 534-552S *0308638 293001 12:45 DAIG/[employer] ANGIOSEAL, FR6 VIP FR 6 Used *[id number] 11:36 Angella Joy BLANKET,WARM AIR CCL * Used *[id number] 11:36 Angella Joy PACK, CCL CUSTOM * Used *[id number] 11:36 Angella Joy SUPPORT, ARTERIAL ADULT 30570 *[id number] Used [id number] 11:02 MEDTRONIC JR 4.0 DXTERITY CATHETER FR 5 Used *[id number] 12:27 MEDTRONIC STENT, 2.0 22MM KRISTINA 2.0 X 22MM Used *[id number] [id number] 12:23 [email or web address] 30 MARY GRACE INDEFLATOR Used *2535595 BAND, RADIAL COMPRESSION TR [id number] 12:47 [employer] MEDICAL 24CM Used SHORT 24 *[id number] BAND, RADIAL COMPRESSION TR [id number] 11:01 [email or web address] 24CM Used SHORT 24 *[id number] 11:36 [email or web address] WIRE, EXCHANGE 260CM 3MMJ 260CM Used *[id number] [id number] 11:36 NAMIC MANIFOLD, 4 PORT * Used *1391915 11:30 NYCOMED OMNIPAQUE, 350 MG, 150ML 150ML [id number] Used 12:03 NYCOMED OMNIPAQUE, 350 MG, 150ML 150ML [id number] Used [id number] 11:46 TERUMO MEDICAL SHEATH, FR6 TERUMO (10CM) FR 6 Used *[id number] SHEATH, FR6 TRANSRADIAL [id number] 11:36 TERUMO MEDICAL FR 6 Used SLENDER 10CM *[id number] SHEATH, FR6 TRANSRADIAL [id number] 11:29 TERUMO MEDICAL FR 6 Used SLENDER 10CM *[id number] Equipment Model, Serial, Lot Number and Expiration Data Description Model Number Serial Number Lot Number Expiration Date ANGIOSEAL, FR6 VIP [id number] 01-22-2019 BALLOON, 2.0 15MM EMERGE MR [id number] 03-07-2020 INTRODUCER SET, [id number] 03-22-2021 MICROPUNCTURE STIFF JR 4.0 DXTERITY CATHETER [id number] 11-23-2020 STENT, 2.0 22MM KRISTINA [id number] 12-31-2019 History: Current Medications Medication Dosage/Unit Route Frequency Last Date/Time Taken 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 History: Allergies Allergy Reaction Sulfa (Sulfonamide Antibiotics) Rash cephalexin Rash simvastatin Anaphylaxis nabumetone Edema meperidine Vomiting gatifloxacin Anaphylaxis History: Risk Factors Family History of Hypertension Dyslipidemia Previous MN Previous Heart Failure Premature CAD Yes Yes No No No Prior Valve Prior PCI Prior PCIDate Prior CABG Surgery No Yes 09/25/2007 No Cerebrovascular Peripheral Artery Chronic Lung On Dialysis Diabetes Diabetes Therapy Disease Disease Disease No No No No Yes Oral History: Symptoms/Diagnosis Selection Items Chest pain History: Stress Tests Stress or Imaging Studies Performed No History: Other Current Smoker No Labs Hgb (g/dl) Hct (%) WBC (l/cumm) Platelets (thousands) 11.60-17.00 35.00-51.00 4.00-11.00 150.00-450.00 10.8 32.6 5.9 204 Glucose (mg/dl) BUN (mg/dl) Creatinine (mg/dl) BUN:Creatinine (1:x) 74.00-106.00 7.00-18.00 0.50-1.30 10.00-20.00 111 13 0.9 14.4 Na (meq/l) K (meq/l) 136.00-145.00 3.50-5.10 145 4 INR (PTT:PT) 0.90-1.10 0.9 Troponin I (ng/ml) CPK-MB (ng/ML) 0.02-0.05 0.50-3.60 2.61 Not Drawn Medication Medication Total Dose (Bolus/Oral) Medication Total Dosage/Unit 1% XYLOCAINE 25 mL FENTANYL 125 mcg HEPARIN 7500 units NTG (IC) 400 mcg OXYGEN 3 l/min PLAVIX 600 mg RADIAL COCKTAIL 5 mL (Bolus) VERSED 1 mg Medications (Bolus/Oral) Medication Time Given Dosage/Unit Administered By Reason 1% XYLOCAINE 06/18/2018 11:26:15 AM 5 mL Marlon Neal 5 mL 1% XYLOCAINE given in lab by Marlon Neal in Right Radial via Subcutaneous. VERSED 06/18/2018 11:26:41 AM 0.5 mg Kiki Paul 0.5 mg VERSED given in lab by Kiki Paul, RN in Right Antecubital via Peripheral IV. Ordered by Marlon Neal FENTANYL 06/18/2018 11:27:04 AM 25 mcg Kiki Paul 25 mcg FENTANYL given in lab by Kiki Paul, RN in Right Antecubital via Peripheral IV. Ordered b y Marlon Neal RADIAL COCKTAIL 06/18/2018 11:28:38 AM 5 mL (Bolus) Marlon Neal 5 mL (Bolus) RADIAL COCKTAIL given in lab by Marlon Neal in Right Radial via Radial. Using [S olution Name]. Ordered by Marlon Neal Reason: Ntg 200mcg ,Heparin 3800U. HEPARIN 06/18/2018 11:43:20 AM 5500 units Kiki Paul 5500 units HEPARIN given in lab by Kiki Paul RN in Right Antecubital via Peripheral IV. Ordere d by Marlon Neal NTG (IC) 06/18/2018 11:47:50 AM 200 mcg Marlon Neal 200 mcg NTG (IC) given in lab by Marlon Neal in Right Radial via Intra-arterial. Ordered by Marlon Dave VERSED 06/18/2018 11:59:49 AM 0.5 mg Kiki Paul 0.5 mg VERSED given in lab by Kiki Paul RN in Right Antecubital via Peripheral IV. Ordered by Marlon Neal FENTANYL 06/18/2018 12:00:03 PM 50 mcg Kiki Paul 50 mcg FENTANYL given in lab by Kiki Paul RN in Right Antecubital via Peripheral IV. Ordered Marlon Mcintyre 1% XYLOCAINE 06/18/2018 12:06:52 PM 20 mL Marlon Neal 20 mL 1% XYLOCAINE given in lab by Marlon Neal in Right Groin via Subcutaneous. OXYGEN 06/18/2018 12:08:22 PM 3 l/min Kiki Paul 3 l/min OXYGEN given in lab by Kiki Paul RN via Nasal. Ordered by Marlon Neal HEPARIN 06/18/2018 12:16:05 PM 2000 units Kiki Paul 2000 units HEPARIN given in lab by Kiki Paul RN in Right Antecubital via Peripheral IV. Ordere d by Marlon Neal FENTANYL 06/18/2018 12:35:02 PM 50 mcg Kiki Paul 50 mcg FENTANYL given in lab by Kiki Paul RN in Right Antecubital via Peripheral IV. Ordered Marlon Mcintyre NTG (IC) 06/18/2018 12:38:45 PM 200 mcg Marlon Neal 200 mcg NTG (IC) given in lab by Marlon Neal in Right Groin via Intra-coronary. PLAVIX 06/18/2018 12:55:20 PM 600 mg Kiki Paul 600 mg PLAVIX given in lab by Kiki Paul RN via Oral. Ordered by Marlon Neal Medication (Drip) Medication Time Given Dosage/Unit Concentration/Unit Diluent (ml) Solution IV Solutions 06/18/2018 10:54:44 AM 50 mL (IV) NaCl .9 IV Solutions given in lab by Leti Cedeño RN in Right Antecubital via Peripheral IV. Pump/Drip Fl ow using NaCl .9. Initial Case Assessment Cardiovascular Edema Present Skin color Skin None Normal Warm Dry Circulatory - Right Pulses Posterior Tibial Femoral Radial 3 2 3 Scale (0,1,2,3,4,d) Circulatory - Left Pulses Posterior Tibial Femoral Radial 3 2 Scale (0,1,2,3,4,d) Neurological State Oriented to time-place- Alert Moves all extremities person Chronological Log Time Study Chronological Log 10:53:30 Patient arrived via Bed. 10:54:22 Patient Name, D.O.B, / Armband Verified By R.N. 10:54:23 Consent signed by the physician and the patient and verified by the Metal Dealer staff. 10:54:24 Pre-op and post- op instructions given; patient acknowledges understanding of instructions . 10:54:28 Presedation assessment performed by Metal Dealer RN. 10:54:29 Allens test performed on the right radial and ulnar artery. 10:54:39 Patient has been NPO for More than 6Hrs. 10:54:40 Skin Breakdown- none per pt 10:54:40 Patient Warmer Placed on the Table. 10:54:41 Lucio Prominences Protected 10:54:42 IV Warmer Connected To Patient. 10:54:43 A # 20 IV was noted in the Antecubital (right). Grade = 0 10:54:43 A # 20 IV was noted in the Antecubital (left). Grade = 0 10:54:44 IV Solutions given in lab by Leti Cedeño, JULIANNE in Right Antecubital via Peripheral IV. P ump/Drip Flow using NaCl .9. 10:54:45 History and physical on the chart or being dictated. Assessment: Initial Case, Edema=None, Color=Normal, Skin = Warm, Dry Right Pulses: Post Tib=3, Femoral=2, Radial=3 10:54:46 Left Pulses: Post Tib=3, Femoral=2 Neurological: State=Alert, Ox3, SMITH 11:01:25 Reference ECG taken Vitals capture started with the following parameters, Patient=Adult, Interval=5 min, Initial P lzcqhma=399 mmHg, 11:02:36 Deflation Rate=5 mmHg, Cuff placed on Left Arm 11:03:23 HR=54 bpm, TFIT=487/77 mmhg, SpO2=97.0 %, Resp=10 B/min 11:07:59 Right Radial and groin(s) prepped with 2% chlorhexidine, and draped after a 3 min. waiting time. 11:08:18 HR=49 bpm, GVWH=973/74 mmhg, SpO2=97.0 %, Resp=18 B/min 11:13:21 HR=50 bpm, YANF=131/66 mmhg, SpO2=96.0 %, Resp=19 B/min 11:15:50 Pressure channel 1 zeroed. 11:18:05 MD paged 11:18:15 MD responded 11:18:22 HR=50 bpm, ORLX=962/64 mmhg, SpO2=98.0 %, Resp=13 B/min 11:21:40 MD arrived. 11:23:15 HR=53 bpm, CRTX=680/67 mmhg, SpO2=94.0 %, Resp=9 B/min Time Out. Correct patient, correct procedure, correct physician, labs, allergies, and equipment verified with clinical laboratory technologist 11:24:34 team present. Fire risk assesment completed (see hard stop sheet for coding). Time Out Conc urred by MD and individual staff in procedure. 11:25:50 Case Start 11:26:15 5 mL 1% XYLOCAINE given in lab by Marlon Neal in Right Radial via Subcutaneous. 0.5 mg VERSED given in lab by Kiki Paul, RN in Right Antecubital via Peripheral IV. Order ed by Marlon Neal 11:26:41 G. 25 mcg FENTANYL given in lab by Kiki Paul, RN in Right Antecubital via Peripheral IV. Ord ered by Ángel 11:27:04 Marlon Carrasco 11:27:30 The Recorder is being relieved by Ayana Dorado, CALIXTO TECH2. 11:27:35 Access site was Right Radial Artery . A SHEATH, FR6 TRANSRADIAL SLENDER 10CM FR 6 was advanced into the Radial (right) using the Perc utaneous 11:27:48 technique. 11:28:16 HR=55 bpm, RVXD=109/67 mmhg, SpO2=97.0 %, Resp=12 B/min 5 mL (Bolus) RADIAL COCKTAIL given in lab by Marlon Neal in Right Radial via Radial. Us ing [Solution Name]. 11:28:38 Ordered by Marlon Neal. Reason: Ntg 200mcg ,Heparin 3800U. A JR 4.0 DXTERITY CATHETER FR 5 was advanced over a wire. OMNIPAQUE, 350 MG, 150ML 150ML was us ed for 11:29:16 injections. 11:33:01 The RCA was injected and visualized at various angles. OMNIPAQUE, 350 MG, 150ML 150ML used . 11:33:17 HR=57 bpm, KJYK=882/62 mmhg, SpO2=93.0 %, Resp=11 B/min 11:34:55 After removing the current catheter a JL 3.5 INFINITI CATHETER FR 5 was advanced over a wir e. 11:37:05 The LCA was injected and visualized at various angles. OMNIPAQUE, 350 MG, 150ML 150ML used . 11:38:12 HR=57 bpm, RCAX=890/73 mmhg, SpO2=94 %, Resp=8 B/min After removing the current catheter a PIGTAIL ANG. INFINITI CATHETER FR 5 was advanced over a W NANCY, EXCHANGE 11:41:13 260CM 3MMJ 260CM. Recorded Pressure: LV, HR=59, Condition=Condition 1 11:43:11 (Left Ventricle) LV 107/5/14 11:43:19 HR=61 bpm, RKKK=759/62 mmhg, SpO2=94.0 %, Resp=7 B/min 5500 units HEPARIN given in lab by Kiki Paul, JULIANNE in Right Antecubital via Peripheral IV. Ordered by Ángel, 11:43:20 Marlon Gipson. Recorded Pressure: LV, Ao, HR=62, Condition=Condition 1 11:43:24 (Left Ventricle) LV 111/8/15, (Aorta) Ao 109/51/78 11:45:29 Catheter was removed A SHEATH, FR6 TERUMO (10CM) FR 6 was exchanged in the Radial (right). This was necessary in ord er to accomodate 11:47:02 a larger catheter. 11:47:50 200 mcg NTG (IC) given in lab by Marlon Neal in Right Radial via Intra-arterial. Or dered by Marlon Neal. 11:48:16 HR=56 bpm, XJUC=677/71 mmhg, SpO2=96.0 %, Resp=8 B/min 11:48:54 A AR 1 GUIDE CATHETER FR 6 was advanced over a wire. OMNIPAQUE, 350 MG, 150ML 150ML was use d for injections. After removing the current catheter a JR 4.0 GUIDE CATHETER FR 6 was advanced over a WIRE, EXCH CHRISTIANE 260CM 11:52:19 3MMJ 260CM. 11:53:19 HR=53 bpm, BOQD=150/66 mmhg, SpO2=99.0 %, Resp=9 B/min After removing the current catheter a AL .75 GUIDE CATHETER FR 6 was advanced over a WIRE, EXCH CHRISTIANE 260CM 11:57:07 3MMJ 260CM. 11:58:18 HR=56 bpm, PJZC=048/68 mmhg, SpO2=94.0 %, Resp=12 B/min, Torres=2 0.5 mg VERSED given in lab by Kiki Paul, JULIANNE in Right Antecubital via Peripheral IV. Order ed by Marlon Neal 11:59:49 G. 50 mcg FENTANYL given in lab by Kiki Paul, JULIANNE in Right Antecubital via Peripheral IV. Ord ered by Ángel, 12:00:03 Marlon Gipson. 12:01:52 Catheter was removed 12:01:59 Radial access aborted, going groin 12:03:19 HR=53 bpm, ZXGM=420/71 mmhg, SpO2=95.0 %, Resp=10 B/min 12:06:52 20 mL 1% XYLOCAINE given in lab by Marlon Neal in Right Groin via Subcutaneous. 12:07:00 Access site was Right Femoral Artery via micropuncture. 12:07:16 A SHEATH, FR6 TERUMO (10CM) FR 6 was advanced into the Fem Art (right) using the Percutaneo us technique. 12:08:18 HR=58 bpm, HWWB=150/73 mmhg, SpO2=88.0 %, Resp=11 B/min 12:08:22 3 l/min OXYGEN given in lab by Kiki Paul, RN via Nasal. Ordered by Marlon Neal 12:08:52 An injection in the Fem Art (right) was made through the SHEATH, FR6 TERUMO (10CM) FR 6. 12:09:09 Activated Clotting Time Drawn A JR 4.0 GUIDE CATHETER FR 6 was advanced over a wire. OMNIPAQUE, 350 MG, 150ML 150ML was used for 12:10:00 injections. 12:12:21 A WIRE, BALANCE MIDDLEWEIGHT 190CM 190CM was inserted via Fem Art (right). 12:13:20 HR=54 bpm, ZBPS=724/65 mmhg, SpO2=97.0 %, Resp=10 B/min 12:14:31 ACT (Normal Range 90-180) = 270 2000 units HEPARIN given in lab by Kiki Paul, JULIANNE in Right Antecubital via Peripheral IV. Ordered by Ángel 12:16:05 Marlon Carrasco 12:18:19 HR=52 bpm, PULD=393/72 mmhg, SpO2=98.0 %, Resp=10 B/min A BALLOON, 2.0 15MM EMERGE MR 2.0 15MM was inserted over WIRE, BALANCE MIDDLEWEIGHT 190CM 190CM via 12:19:54 the Fem Art (right). A BALLOON, 2.0 15MM EMERGE MR 2.0 15MM over a WIRE, BALANCE MIDDLEWEIGHT 190CM 190CM in the PLV mid 12::41 was inflated using a 30 MARY GRACE INDEFLATOR at 6 mary grace for 15 sec. 12::54 Balloon Removed. 12::57 HR=67 bpm, JJEM=307/80 mmhg, SpO2=98.0 %, Resp=11 B/min A STENT, 2.0 22MM KRISTINA 2.0 X 22MM was advanced through a JR 4.0 GUIDE CATHETER FR 6 over a WIRE , BALANCE 12:28:18 MIDDLEWEIGHT 190CM 190CM. 12:28:23 HR=56 bpm, BHQE=616/81 mmhg, SpO2=98.0 %, Resp=14 B/min 12:: Stent not deployed. Stent removed and intact. 12:29:44 A WIRE, ASAHI GRANDSLAM 180CM 180CM was inserted via Fem Art (right). A STENT, 2.0 22MM KRISTINA 2.0 X 22MM was advanced through a JR 4.0 GUIDE CATHETER FR 6 over a WIRE , BALANCE 12:31:59 MIDDLEWEIGHT 190CM 190CM. A STENT, 2.0 22MM KRISTINA 2.0 X 22MM was deployed using a 30 MARY GRACE INDEFLATOR at 12 atmospheres for 30 seconds 12:33:03 in the RCA Dist. 12:34:03 HR=62 bpm, TBPN=134/84 mmhg, SpO2=98.0 %, Resp=13 B/min 50 mcg FENTANYL given in lab by Kiki Paul RN in Right Antecubital via Peripheral IV. Ord ered by Ángel 12:35:02 Marlon Carrasco 12:35:36 Delivery device removed A BALLOON, 2.0 12MM NC QUANTUM APEX MR 2.0 12MM was inserted over WIRE, BALANCE MIDDLEWEIGHT 19 0CM 12:36:12 190CM via the Fem Art (right). A BALLOON, 2.0 12MM NC QUANTUM APEX MR 2.0 12MM over a WIRE, BALANCE MIDDLEWEIGHT 190CM 190CM i n the 12:37:31 RCA Dist was inflated using a 30 MARY GRACE INDEFLATOR at 10 mary grace for 12 sec. A BALLOON, 2.0 12MM NC QUANTUM APEX MR 2.0 12MM over a WIRE, BALANCE MIDDLEWEIGHT 190CM 190CM in the 12:38:28 RCA Dist was inflated using a 30 MARY GRACE INDEFLATOR at 14 mary grace for 10 sec. 12:38:29 HR=57 bpm, DZZE=555/80 mmhg, SpO2=98.0 %, Resp=12 B/min A BALLOON, 2.0 12MM NC QUANTUM APEX MR 2.0 12MM over a WIRE, BALANCE MIDDLEWEIGHT 190CM 190CM in the 12:38:35 RCA Dist was inflated using a 30 MARY GRACE INDEFLATOR at 16 mary grace for 10 sec. A BALLOON, 2.0 12MM NC QUANTUM APEX MR 2.0 12MM over a WIRE, BALANCE MIDDLEWEIGHT 190CM 190CM in the 12:38:40 RCA Dist was inflated using a 30 MARY GRACE INDEFLATOR at 18 mary grace for 10 sec. 12:38:45 200 mcg NTG (IC) given in lab by Marlon Neal in Right Groin via Intra-coronary. 12:41:48 Balloon Removed. 12:42:01 Wires removed After removing the current catheter a JR 4.0 DXTERITY CATHETER FR 5 was advanced over a WIRE, EXCHANGE 260CM 12:42:49 3MMJ 260CM. 12:43:30 HR=56 bpm, EWQF=716/82 mmhg, SpO2=98.0 %, Resp=9 B/min 12:45:10 Catheter was removed 12:46:53 ANGIOSEAL, FR6 VIP FR 6 placement in the Fem Art (right) 12:48:08 Case End (Physician broke scrub) 12:48:13 Sterile dressing applied to site 12:48:14 No case complications noted. 12:48:29 HR=57 bpm, HAYR=153/79 mmhg, SpO2=99.0 %, Resp=13 B/min 12:49:24 Cine recording checked. 12:49:29 Bedside Report will be given. 12:49:30 Implantable Device card placed in patient's chart. 12:49:40 A Left Heart Cath was performed. 12:53:30 HR=56 bpm, GWDR=851/63 mmhg, SpO2=98.0 %, Resp=17 B/min 12:55:20 600 mg PLAVIX given in lab by Kiki Paul RN via Oral. Ordered by Marlon Neal . 13:00:41 Patient moved to [facility] End Study - Contrast Media Used In Study Contrast Total Opened (mL) Total Used (mL) Total Wasted (mL) Omnipaque 300 160 140 End Study - Maximum Contrast Load Max Contrast Load (mL) 519.4 End Study - Radiation Exposure Fluoro Time (minutes) 21.8 End Study - Patient Disposition Complications Transferred To Interventional Outcome No Telemetry Bed successful
[2018-06-18] MEDS ORDERED: Iohexol 350 MG/ML 100 ML Vial (for Cath Lab) IVCONTRAST ONE (14:10)
--- NOTE | 2018-06-18 18:50 | ECG ---
Date Performed: 06/17/2018 Time Performed: 07:23:05 PTAGE: 58 years EKG: Sinus rhythm MODERATE VOLTAGE CRITERIA FOR LVH, CONSIDER NORMAL VARIANT NONSPECIFIC T-WAVE ABNORMALITY BORDERLINE ECG INTERPRETATION BASED ON A DEFAULT AGE OF 38 YEARS PREVIOUS TRACING : 06/17/2018 04.18 DOCTOR: Shad Robbins Interpretating Date/Time 06/18/2018 18:40:03
--- NOTE | 2018-06-19 01:36 | P.PNCA ---
Subjective Interval history: s/p PCI of PLB of RCA Doing well Medications and Allergies Active Medications: Active Medications Acetaminophen (Tylenol) 650 mg PO Q4H PRN PRN Reason: Temp > 100.4 Last Admin: 06/18/18 20:15 Dose: 650 mg Al Hydroxide/Mg Hydroxide (Milk Of Magnesia Liq) 30 ml PO Q12H PRN PRN Reason: Mild Constipation Aspirin (Aspirin Chew) 81 mg PO DAILY [facility] Last Admin: 06/18/18 09:28 Dose: 81 mg Bisacodyl (Dulcolax Supp) 10 mg RECTAL DAILY PRN PRN Reason: SEVERE CONSITIPATION Clopidogrel Bisulfate (Plavix) 75 mg PO DAILY [facility] Cyanocobalamin (Vitamin B12) 100 mcg PO DAILY [facility] Last Admin: 06/18/18 09:29 Dose: 100 mcg Dextrose (D50w Vial) 50 ml IV.PUSH UNSCH PRN PRN Reason: PER HYPOGLYCEMIA PROTOCOL Glucagon (Glucagon Inj) 1 mg OTHER PRN PRN PRN Reason: for Hypoglycemia Protocol Sodium Chloride (Ns Inj) 1,000 mls @ 100 mls/hr IV.CONT .Q10H [facility] Last Admin: 06/18/18 21:21 Dose: Not Given Nitroglycerin/Dextrose (Nitroglycerin Drip Premix) 50 mg in 250 mls @ 0 mls/hr IV.CONT TITRATE PRN; Protocol PRN Reason: Per Protocol Insulin Aspart (Novolog Insulin Correctional Sugar Inj) 0 unit SQ ACHS [facility]; Protocol Last Admin: 06/18/18 22:28 Dose: Not Given Lactulose (Lactulose Liq) 30 ml PO DAILY PRN PRN Reason: SEVERE CONSITIPATION Metoprolol Tartrate (Lopressor) 25 mg PO DAILY [facility] Last Admin: 06/18/18 09:31 Dose: 25 mg Morphine Sulfate (Morphine Inj) 2 mg IV.PUSH Q4H PRN PRN Reason: PAIN 6-10 Last Admin: 06/18/18 09:28 Dose: 2 mg Nitroglycerin (Nitro-Bid 2% Oint) 0.5 inch TOPICAL Q6HR PRN PRN Reason: CHEST PAIN Last Admin: 06/17/18 15:51 Dose: 0.5 inch Ondansetron HCl (Zofran Inj) 4 mg IV.PUSH Q6H PRN PRN Reason: NAUSEA OR VOMITING Pantoprazole Sodium (Protonix) 40 mg PO DAILY [facility] Last Admin: 06/18/18 09:28 Dose: 40 mg Pt Own Crestor 10 Mg 0 each PO DAILY [facility] Last Admin: 06/18/18 10:35 Dose: Not Given Senna/Docusate Sodium (Ning-Colace) 1 tab PO BID [facility] Last Admin: 06/18/18 20:16 Dose: 1 tab Sennosides (Senokot) 17.2 mg PO Q12H PRN PRN Reason: Moderate Constipation Sertraline HCl (Zoloft) 100 mg PO DAILY [facility] Last Admin: 06/18/18 09:34 Dose: 100 mg Sodium Chloride (Ns Flush) 2 ml IV.FLUSH BID [facility] Last Admin: 06/18/18 20:18 Dose: 2 ml Sodium Chloride (Ns Flush) 2 ml IV.FLUSH UNSCH PRN PRN Reason: FLUSH AFTER USING IV ACCESS Temazepam (Restoril) 15 mg PO HS PRN PRN Reason: Insomnia Timolol Maleate (Timoptic 0.5% Drops) 1 drops EACH EYE BID [facility] Last Admin: 06/18/18 21:21 Dose: 1 drops Allergies Allergy/AdvReac Type Severity Reaction Status Date / Time cephalexin [From Keflex] Allergy Rash Verified 06/17/18 03:48 gatifloxacin Allergy Anaphylaxis Verified 06/17/18 03:48 meperidine Allergy Vomiting Verified 06/17/18 03:48 nabumetone Allergy Edema Verified 06/17/18 03:48 simvastatin Allergy Anaphylaxis Verified 06/17/18 03:48 Sulfa (Sulfonamide Allergy Rash Verified 06/17/18 03:48 Antibiotics) Home Medications Medication Instructions Recorded Confirmed Type albuterol sulfate 2 puff INHALATION Q4-6H PRN 06/17/18 06/17/18 History aspirin [Aspirin Childrens] 81 mg PO DAILY 06/17/18 06/17/18 History fexofenadine-pseudoephedrine 1 tab PO Q12H PRN 06/17/18 06/17/18 History [Georgette-D 12 Hour] irbesartan 300 mg PO DAILY 06/17/18 06/17/18 History meclizine 25 mg PO TID PRN 06/17/18 06/17/18 History metformin 500 mg PO BID 06/17/18 06/17/18 History metoprolol tartrate 25 mg PO DAILY 06/17/18 06/17/18 History nitroglycerin 0.4 mg SUBLINGUAL Q5-15M PRN 06/17/18 06/17/18 History omeprazole 40 mg PO DAILY 06/17/18 06/17/18 History ranitidine HCl 300 mg PO DAILY 06/17/18 06/17/18 History rosuvastatin 10 mg PO DAILY 06/17/18 06/17/18 History sertraline 100 mg PO DAILY 06/17/18 06/17/18 History temazepam 15 mg PO HS PRN 06/17/18 06/17/18 History timolol 1 drp OPHTHALMIC (EYE) BID 06/17/18 06/17/18 History vitamin W75-xfenw acid 1 mg PO DAILY 06/17/18 06/17/18 History Physical Exam Vital signs: Vital Signs 06/18/18 01:40 06/18/18 02:00 06/18/18 02:54 Temperature 97.6 F Pulse Rate 48 L 52 L Respiratory Rate 16 Blood Pressure 131/67 Pulse Oximetry 94 L 96 06/18/18 03:00 06/18/18 03:18 06/18/18 04:00 Temperature Pulse Rate 48 L 52 L Respiratory Rate 18 Blood Pressure Pulse Oximetry 96 06/18/18 05:00 06/18/18 06:00 06/18/18 07:00 Temperature 98.3 F Pulse Rate 48 L 52 L 53 L Respiratory Rate 18 Blood Pressure 174/79 H Pulse Oximetry 97 06/18/18 08:17 06/18/18 10:37 06/18/18 11:00 Temperature Pulse Rate 112 H Respiratory Rate 16 Blood Pressure Pulse Oximetry 98 96 06/18/18 12:00 06/18/18 13:00 06/18/18 13:07 Temperature 98.5 F Pulse Rate 50 L 48 L 49 L Respiratory Rate 17 Blood Pressure 128/65 Pulse Oximetry 96 06/18/18 14:00 06/18/18 15:00 06/18/18 16:00 Temperature Pulse Rate 46 L 54 L 48 L Respiratory Rate Blood Pressure Pulse Oximetry 96 06/18/18 17:00 06/18/18 18:00 06/18/18 19:00 Temperature 98.6 F Pulse Rate 52 L 48 L 50 L Respiratory Rate 16 Blood Pressure 131/62 Pulse Oximetry 06/18/18 20:00 06/18/18 21:00 06/18/18 22:00 Temperature Pulse Rate 53 L 55 L 59 L Respiratory Rate Blood Pressure Pulse Oximetry 06/18/18 23:00 06/19/18 00:00 06/19/18 01:00 Temperature 97.9 F Pulse Rate 65 52 L 50 L Respiratory Rate 16 Blood Pressure 141/71 H Pulse Oximetry Intake & Output 06/18/18 06/18/18 06/19/18 06:59 18:59 06:59 Intake Total 920 / 920 540 / 540 Output Total 800 / 800 600 / 600 Balance 120 / 120 -60 / -60 Weight 93.5 kg Intake: IV 200 / 200 NS Inj 1,000 ML @ 100 mls/hr IV 200 / 200 .CONT .Q10H [facility] Rx#:[id number] Oral 720 / 720 240 / 240 Anesthesia Amount 300 / 300 Output: Urine 800 / 800 600 / 600 Other: Date of Last Bowel Movement 06/18/18 # Bowel Movements 1 Narrative: GENERAL: Very pleasant 58-year-old female in bed appears in not acute distress at this time. CARDIOVASCULAR: Regular rate and rhythm without murmurs, gallops, or rubs. RESPIRATORY: Breath sounds equal bilaterally. No accessory muscle use. GASTROINTESTINAL: Abdomen soft, non-tender, nondistended. MUSCULOSKELETAL: No cyanosis, or edema. BACK: Nontender without obvious deformity. No CVA tenderness. Results 06/18/18 07:00 06/18/18 07:00 Cardiac Enzymes 06/17/18 06/17/18 06/17/18 Range/Units 04:15 09:45 16:16 AST 18 (15-37) U/L Troponin I 0.35 H 1.06 H* D 2.61 H* D (0.02-0.05) ng/mL 06/18/18 Range/Units 07:00 AST 44 H (15-37) U/L Troponin I (0.02-0.05) ng/mL Coagulation 06/17/18 06/17/18 06/17/18 Range/Units 05:15 11:15 16:16 PT 9.6 L (9.8-11.6) sec APTT 24.4 37.7 H D 41.5 H (24.3-30.1) sec 06/17/18 06/18/18 Range/Units 23:16 07:00 PT (9.8-11.6) sec APTT 43.5 H 46.3 H (24.3-30.1) sec Lipids 06/17/18 Range/Units 09:45 Triglycerides 263 H (42-150) mg/dL Cholesterol 171 (120-200) mg/dL HDL Cholesterol 44.5 (40.0-60.0) mg/dL Cholesterol/HDL Ratio 3.84 Ratio CBC 06/17/18 06/17/18 06/18/18 Range/Units 04:15 08:45 07:00 WBC 5.7 5.9 5.9 (4.0-11.0) th/mm3 RBC 4.43 4.27 4.02 (4.00-5.30) mil/mm3 Hgb 11.8 11.4 L 10.8 L (11.6-15.3) gm/dL Hct 36.4 34.5 L 32.6 L (35.0-46.0) % Plt Count 237 232 204 (150-450) th/mm3 Neut # (Auto) 3.4 3.6 (1.8-7.7) th/mm3 Lymph # (Auto) 1.6 1.7 (1.0-4.8) th/mm3 [place] # (Auto) 0.4 0.4 (0.0-0.9) th/mm3 Eos # (Auto) 0.1 0.2 (0.0-0.4) th/mm3 Baso # (Auto) 0.0 0.0 (0.0-0.2) th/mm3 Comprehensive Metabolic Panel 06/17/18 06/18/18 Range/Units 04:15 07:00 Sodium 144 145 (136-145) meq/L Potassium 3.9 4.0 (3.5-5.1) meq/L Chloride 110 H 110 H (98-107) meq/L Carbon Dioxide 25.5 26.0 (21.0-32.0) meq/L BUN 16 13 (7-18) mg/dL Creatinine 1.24 H 0.95 (0.50-1.00) mg/dL Calcium 8.2 L 7.9 L (8.5-10.1) mg/dL AST 18 44 H (15-37) U/L ALT 29 29 (10-53) U/L Alkaline Phosphatase 96 65 (45-117) U/L Total Protein 6.7 6.1 L D (6.4-8.2) g/dL Albumin 3.6 3.3 L (3.4-5.0) g/dL Intake and Output 06/18/18 06/18/18 06/19/18 14:59 22:59 06:59 Intake Total 300 / 300 240 / 240 Output Total 600 / 600 Balance 300 / 300 -360 / -360 Intake: Oral 240 / 240 Anesthesia Amount 300 / 300 Output: Urine 600 / 600 Other: Date of Last Bowel Movement 06/18/18 # Bowel Movements 1 - Imaging and Cardiology Imaging: Impressions Chest X-Ray 06/17/18 04:08 CONCLUSION: No evidence of acute cardiopulmonary disease. Assessment and Plan - Assessment (1) NSTEMI (non-ST elevated myocardial infarction) Code(s): I21.4 - Non-ST elevation (NSTEMI) myocardial infarction Status: Acute (2) CAD (coronary artery disease) Code(s): I25.10 - Atherosclerotic heart disease of habematolel coronary artery without angina pectoris Status: Acute (3) HTN (hypertension) Code(s): I10 - Essential (primary) hypertension Status: Acute (4) Bradycardia Code(s): R00.1 - Bradycardia, unspecified Status: Acute - Plan 1) NSTEMI s/p PCI of PLC with SANDEEP ASA/Plavix Currently on BB therapy but bradycardia, will have to watch Con't on Statin/ARB therapy 2) Watch overnight and if stable then plan for discharge tomorrow
[2018-06-19 05:06] LABS: Baso % (Auto) 0.3 % (0.0-2.0); Eos # (Auto) 0.1 th/mm3 (0.0-0.4); Eos % (Auto) 2.6 % (0.0-4.0); Hematocrit 30.7 % (35.0-46.0); Hemoglobin 10.2 gm/dL (11.6-15.3); Lymph # (Auto) 1.1 th/mm3 (1.0-4.8); Lymph % (Auto) 20.6 % (9.0-44.0); Mean Corpuscular HGB Conc 33.1 % (32.0-36.0); Mean Corpuscular Hemoglobin 26.9 pg (27.0-34.0); Mean Corpuscular Volume 81.4 fL (80.0-100.0); Mono # (Auto) 0.4 th/mm3 (0.0-0.9); Mono % (Auto) 7.3 % (0.0-8.0); Neut # (Auto) 3.6 th/mm3 (1.8-7.7); Neut % (Auto) 69.2 % (16.0-70.0); Platelet Count 204 th/mm3 (150-450); Red Blood Count 3.77 mil/mm3 (4.00-5.30); Red Cell Distribution Width 17.9 % (11.6-17.2); White Blood Count 5.2 th/mm3 (4.0-11.0)
[2018-06-19 05:33] LABS: Calcium 8.5 mg/dL (8.5-10.1); Carbon Dioxide 26.8 meq/L (21.0-32.0); Potassium 3.8 meq/L (3.5-5.1)
--- NOTE | 2018-06-19 05:53 | MA ---
cc: Marlon Neal DO DATE: 06/18/2018 PROCEDURE: Left heart catheterization, coronary angiogram, moderate sedation 84 minutes, [place] drug-eluting stent (2 x 22) to posterolateral branch, Angio-Seal femoral closure. PREPROCEDURE DIAGNOSES: Chest pain concerning for coronary insufficiency, non-ST elevation myocardial infaction. POSTPROCEDURE DIAGNOSES: Non-ST elevation myocardial infarction, status post [place] drug-eluting stent (2 x 22) to the posterolateral branch of right coronary artery. MEDICATIONS: Versed 1 mg, fentanyl 125 mcg, nitro 400 mcg, heparin 11,300 units, Plavix 600 mg. CONTRAST USED: 160 mL. FLUOROSCOPY: 21.8 minutes. MODERATE SEDATION: 84 minutes. FRAILTY SCORE: 3 ESTIMATED BLOOD LOSS: 10 mL. PROCEDURAL SUMMARY Vernell Joshi is a pleasant 58-year-old female who presented to [facility] Emergency Room due to chest pain. She was found to have an elevated troponin and recommended cardiac catheterization. Risks, benefits and alternatives were explained to her and she consented as such. She was brought to the lab and prepped in the usual sterile fashion. The right radial artery was accessed using a modified Seldinger technique and placement of a 5/6 Welsh slender sheath. This is easily aspirated and flushed. A JR4 was advanced over a J-wire to the aorta, but I was unable to cross the aortic valve at that time. JR4 was used for selective angiography of the right coronary artery system. This is exchanged out for a JL3.5, which was used for selective angiography of the left coronary artery system. This is exchanged out for a pigtail, which was used to enter the left ventricle and evaluate left ventricular end-diastolic pressure. This was pulled back across the aortic valve showing no significant gradient of aortic stenosis. Please see notes below for intervention. FINDINGS: Left main: Normal-sized vessel with adequate reflux. It bifurcates into an LAD and circumflex. LAD: Moderate-sized vessel with a stent believed to be in the proximal portion with no in-stent restenosis. It gives off 2 small diagonals and no significant disease distally. Left circumflex: Moderate size vessel with a stent in the mid portion, which has 10% in-stent restenosis. It gives off 1 major obtuse marginal, which has a 40% lesion in it. RCA: Moderate size vessel with 20% disease proximally. Distally, it supplies the PDA with no significant disease and a posterolateral branch with a 99% lesion, which supplies 2 smaller posterolateral branches distally. LVEDP 15. INTERVENTION: I attempted multiple guides to engage the RCA, but was unable to from the radial due to significant tortuosity throughout the aorta. The radial access was abandoned at this time and right femoral artery was accessed using modified Seldinger technique and placement of a 6-Welsh sheath. This is easily aspirated and flushed. A JR4 guide was engaged into the RCA. Heparin was given as an anticoagulant. A BMW was advanced into the distal portion. A compliant balloon (2 x 15) was used to predilate the lesion. At that time, I was unable to place the stent as it was unable to make the proximal turn where a previous stent was placed. A [place] wire was then placed down the posterior descending artery as a molina wire. The [place] drug-eluting stent (2 x 22) was placed over the lesion and inflated. This was postdilated with a noncompliant balloon (2 x 12). Final angiogram shows a well-opposed stent with no perforations or dissections. Wire and guides were removed. As the guide was significantly pulled into the right coronary multiple times, a JR4 was then placed into the right coronary and angiogram was done on removal of the catheter that showed no significant disruption of the right coronary artery ostially. Right femoral artery closure with an Angio-Seal. The patient was given 600 mg of Plavix. 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 INTERVENTIONAL DATA: Vessel: Posterolateral branch of RCA, lesion length 15, pre-SHANNA 2, post-SHANNA 3, post-stenosis 0. IMPRESSION: 1. Chest pain concerning for coronary insufficiency. 2. [id number] myocardial infarction. 3. Coronary artery disease, status post [place] drug-eluting stent (2 x 22) to the mid posterolateral branch of the right coronary artery. RECOMMENDATIONS: 1. Ms. Joshi underwent PCI as above and will be recommended aspirin and Plavix therapy. 2. She has currently been on metoprolol tartrate 25 mg daily, but has heart rates in the 40s to 50s. This will have to be further evaluated and she may need to stop this due to her significant bradycardia. 3. We will check a 2-D echo to look at her overall left ventricular function, cardiac structure and possible valvulopathies. 4. Metformin will be held for 48 hours post-catheterization. 5. She will continue on Crestor and Irbesartan. Thank you for allowing me to see Vernell Joshi. If there are any questions, please do not hesitate to call. Marlon Neal DO VGP/cornelius , 10:43 PM , 10:57 PM
[2018-06-19] MEDS: Metoprolol Tartrate 25 MG Tablet PO SCH (08:39)
[2018-06-19] MEDS: CRESTOR 10 MG PO SCH (08:40)
[2018-06-19] MEDS: Senna/Docusate Sodium 8.6/50 MG Tablet PO SCH (08:40)
[2018-06-19] MEDS: Insulin NovoLOG Aspart Correctional Sugar Inj SQ SCH ×2 (08:41→11:56)
[2018-06-19] MEDS: Sertraline 100 MG Tablet PO SCH (08:41)
[2018-06-19] MEDS: Sod Chloride 0.9% Inj 1,000 ML IV.CONT SCH (08:41)
[2018-06-19] MEDS: Timolol 0.5% Drops 5 ML Bottle EACH EYE SCH (08:41)
[2018-06-19 10:02] VITALS: RESP 18
--- NOTE | 2018-06-19 10:21 | P.DS ---
Date of admission: 06/17/18 06:15 Primary care physician: UNKNOWN Brief History from admission: patient is a 58 y/o female with history of CAD- s/p stent placement,hypertension , dyslipidemia.diabetes mellitus and kidney cancer, presented to ER with chest pain. she says that she's had substernal chest pain for the past three days but yesterday when she was walking her dog the pain got worse and had some radiation to the left arm which made her to seek medical attention. she had some sob but denies nausea,vomiting, or diaphoresis. she was pain free at the time of my evaluation. DS: Diagnosis - Discharge Diagnosis (1) Bradycardia Status: Acute (2) CAD (coronary artery disease) Status: Acute (3) HTN (hypertension) Status: Acute (4) NSTEMI (non-ST elevated myocardial infarction) Status: Acute DS: Medications - Discharge Medications Prescriptions: clopidogrel [Plavix] 75 mg PO DAILY #60 tab DS: Summary Hospital Course: NSTEMI s/p PCI of PLC with SANDEEP by Dr Pantoja H/o CAD with 2 sents placement continue aspirin, Heparin drip and metoprolol- cardiac enzymes trending up - cardiology consulted. -With headaches from nitro. DC nitro and patient is on pain management with morphine IV On BB therapy but bradycardia. Continue for now BB per cardiology, to follow up as OP if symptomatic will DC as OP Con't on Statin/ARB therapy Continue ASA/Plavix Hypertension: resume Metoprolol- continue to monitor and adjust the regimen as needed. Dyslipidemia: continue Crestor. Lipid panel reviewed Diabetes mellitus: on accu-check with SSI Renal insufficiency: with unknown duration/ with history of partial nephrectomy - continue with IV fluid and monitor. -DVT prophylaxis; on Heparin drip. Cleared by cardiology for DC. DC home in stable condition. To follow up as OP with PCP and consultants. - Time Spent with Patient Total time spent providing and/or coordinating discharge services: Greater than 30 minutes Exam Vital signs: Vital Signs 06/18/18 10:37 06/18/18 11:00 06/18/18 12:00 Temperature Pulse Rate 112 H 50 L Respiratory Rate 16 Blood Pressure Pulse Oximetry 96 06/18/18 13:00 06/18/18 13:07 06/18/18 14:00 Temperature 98.5 F Pulse Rate 48 L 49 L 46 L Respiratory Rate 17 Blood Pressure 128/65 Pulse Oximetry 96 06/18/18 15:00 06/18/18 16:00 06/18/18 17:00 Temperature Pulse Rate 54 L 48 L 52 L Respiratory Rate Blood Pressure Pulse Oximetry 96 06/18/18 18:00 06/18/18 19:00 06/18/18 20:00 Temperature 98.6 F Pulse Rate 48 L 50 L 53 L Respiratory Rate 16 Blood Pressure 131/62 Pulse Oximetry 06/18/18 21:00 06/18/18 22:00 06/18/18 23:00 Temperature 97.9 F Pulse Rate 55 L 59 L 65 Respiratory Rate 16 Blood Pressure 141/71 H Pulse Oximetry 06/19/18 00:00 06/19/18 01:00 06/19/18 02:00 Temperature Pulse Rate 52 L 50 L 52 L Respiratory Rate Blood Pressure Pulse Oximetry 06/19/18 03:00 06/19/18 04:00 06/19/18 05:00 Temperature 98.4 F Pulse Rate 58 L 58 L 51 L Respiratory Rate 16 Blood Pressure 159/72 H Pulse Oximetry 06/19/18 06:00 06/19/18 07:00 06/19/18 08:00 Temperature 98.0 F Pulse Rate 55 L 60 66 Respiratory Rate 18 Blood Pressure 152/66 H Pulse Oximetry 98 06/19/18 09:00 06/19/18 10:00 Temperature Pulse Rate 62 89 Respiratory Rate Blood Pressure Pulse Oximetry Intake & Output 06/18/18 06/19/18 06/19/18 18:59 06:59 18:59 Intake Total 540 / 540 240 / 240 Output Total 600 / 600 400 / 400 Balance -60 / -60 -160 / -160 Weight 94.5 kg Intake: Oral 240 / 240 240 / 240 Anesthesia Amount 300 / 300 Output: Urine 600 / 600 400 / 400 Other: Date of Last Bowel Movement 06/18/18 # Bowel Movements 1 Narrative: GENERAL: Very pleasant 58-year-old female in bed appears in not acute distress at this time. CARDIOVASCULAR: Regular rate and rhythm without murmurs, gallops, or rubs. RESPIRATORY: Breath sounds equal bilaterally. No accessory muscle use. GASTROINTESTINAL: Abdomen soft, non-tender, nondistended. MUSCULOSKELETAL: No cyanosis, or edema. BACK: Nontender without obvious deformity. No CVA tenderness. Results Procedures completed during hospitalization: cardiac cath Labs on day of discharge: Labs from last 24 hours 06/19/18 06/19/18 06/19/18 07:57 03:31 03:31 WBC 5.2 RBC 3.77 L Hgb 10.2 L Hct 30.7 L MCV 81.4 MCH 26.9 L MCHC 33.1 RDW 17.9 H Plt Count 204 MPV 8.0 Neut % (Auto) 69.2 Lymph % (Auto) 20.6 [place] % (Auto) 7.3 Eos % (Auto) 2.6 Baso % (Auto) 0.3 Neut # (Auto) 3.6 Lymph # (Auto) 1.1 [place] # (Auto) 0.4 Eos # (Auto) 0.1 Baso # (Auto) 0.0 WBC Differential . Differential Comment Auto diff final Sodium 143 Potassium 3.8 Chloride 108 H Carbon Dioxide 26.8 Anion Gap 8 BUN 11 Creatinine 0.88 Estimated GFR 66 L POC Glucose 111 H Random Glucose 95 Calcium 8.5 06/18/18 06/18/18 20:03 17:08 WBC RBC Hgb Hct MCV MCH MCHC RDW Plt Count MPV Neut % (Auto) Lymph % (Auto) [place] % (Auto) Eos % (Auto) Baso % (Auto) Neut # (Auto) Lymph # (Auto) [place] # (Auto) Eos # (Auto) Baso # (Auto) WBC Differential Differential Comment Sodium Potassium Chloride Carbon Dioxide Anion Gap BUN Creatinine Estimated GFR POC Glucose 167 H 111 H Random Glucose Calcium - Impressions ITS Impressions Chest X-Ray 06/17/18 04:08 CONCLUSION: No evidence of acute cardiopulmonary disease. Discharge Plan - Discharge Disposition Patient Disposition: 01 Discharge Home - Discharge Condition Condition: Stable - Discharge Order Discharge Orders: Discharge Order (Routine); Ordered 06/19/18 Ordered By: Ira Abmriz Cardiology Clear for Discharge (Routine); Ordered 06/19/18 Ordered By: Marlon Neal - Discharge Details Anticipated Discharge Date: 06/19/18 - Physicians Team Primary Care Provider: UNKNOWN, Attending Provider: Ira Ambriz Other Providers: Marlon Neal,
[2018-06-19 11:18] VITALS: BP 133/63; PULSE 61; TEMP 98.2; O2SAT 96
--- NOTE | 2018-06-19 12:50 | P.PNCA ---
Subjective Interval history: No events overnight No complaints Medications and Allergies Active Medications: Active Medications Acetaminophen (Tylenol) 650 mg PO Q4H PRN PRN Reason: Temp > 100.4 Last Admin: 06/18/18 20:15 Dose: 650 mg Al Hydroxide/Mg Hydroxide (Milk Of Magnesia Liq) 30 ml PO Q12H PRN PRN Reason: Mild Constipation Aspirin (Aspirin Chew) 81 mg PO DAILY [facility] Last Admin: 06/19/18 08:39 Dose: 81 mg Bisacodyl (Dulcolax Supp) 10 mg RECTAL DAILY PRN PRN Reason: SEVERE CONSITIPATION Clopidogrel Bisulfate (Plavix) 75 mg PO DAILY [facility] Last Admin: 06/19/18 08:39 Dose: 75 mg Cyanocobalamin (Vitamin B12) 100 mcg PO DAILY [facility] Last Admin: 06/19/18 08:40 Dose: 100 mcg Dextrose (D50w Vial) 50 ml IV.PUSH UNSCH PRN PRN Reason: PER HYPOGLYCEMIA PROTOCOL Glucagon (Glucagon Inj) 1 mg OTHER PRN PRN PRN Reason: for Hypoglycemia Protocol Sodium Chloride (Ns Inj) 1,000 mls @ 100 mls/hr IV.CONT .Q10H [facility] Last Admin: 06/19/18 08:41 Dose: Not Given Nitroglycerin/Dextrose (Nitroglycerin Drip Premix) 50 mg in 250 mls @ 0 mls/hr IV.CONT TITRATE PRN; Protocol PRN Reason: Per Protocol Insulin Aspart (Novolog Insulin Correctional Sugar Inj) 0 unit SQ ACHS [facility]; Protocol Last Admin: 06/19/18 11:56 Dose: Not Given Lactulose (Lactulose Liq) 30 ml PO DAILY PRN PRN Reason: SEVERE CONSITIPATION Metoprolol Tartrate (Lopressor) 25 mg PO DAILY [facility] Last Admin: 06/19/18 08:39 Dose: 25 mg Morphine Sulfate (Morphine Inj) 2 mg IV.PUSH Q4H PRN PRN Reason: PAIN 6-10 Last Admin: 06/18/18 09:28 Dose: 2 mg Nitroglycerin (Nitro-Bid 2% Oint) 0.5 inch TOPICAL Q6HR PRN PRN Reason: CHEST PAIN Last Admin: 06/17/18 15:51 Dose: 0.5 inch Ondansetron HCl (Zofran Inj) 4 mg IV.PUSH Q6H PRN PRN Reason: NAUSEA OR VOMITING Pantoprazole Sodium (Protonix) 40 mg PO DAILY [facility] Last Admin: 06/19/18 08:39 Dose: 40 mg Pt Own Crestor 10 Mg 0 each PO DAILY [facility] Last Admin: 06/19/18 08:40 Dose: 1 each Senna/Docusate Sodium (Ning-Colace) 1 tab PO BID [facility] Last Admin: 06/19/18 08:40 Dose: 1 tab Sennosides (Senokot) 17.2 mg PO Q12H PRN PRN Reason: Moderate Constipation Sertraline HCl (Zoloft) 100 mg PO DAILY [facility] Last Admin: 06/19/18 08:41 Dose: 100 mg Sodium Chloride (Ns Flush) 2 ml IV.FLUSH BID [facility] Last Admin: 06/19/18 08:41 Dose: 2 ml Sodium Chloride (Ns Flush) 2 ml IV.FLUSH UNSCH PRN PRN Reason: FLUSH AFTER USING IV ACCESS Temazepam (Restoril) 15 mg PO HS PRN PRN Reason: Insomnia Timolol Maleate (Timoptic 0.5% Drops) 1 drops EACH EYE BID [facility] Last Admin: 06/19/18 08:41 Dose: 1 drops Allergies Allergy/AdvReac Type Severity Reaction Status Date / Time cephalexin [From Keflex] Allergy Rash Verified 06/17/18 03:48 gatifloxacin Allergy Anaphylaxis Verified 06/17/18 03:48 meperidine Allergy Vomiting Verified 06/17/18 03:48 nabumetone Allergy Edema Verified 06/17/18 03:48 simvastatin Allergy Anaphylaxis Verified 06/17/18 03:48 Sulfa (Sulfonamide Allergy Rash Verified 06/17/18 03:48 Antibiotics) Home Medications Medication Instructions Recorded Confirmed Type albuterol sulfate 2 puff INHALATION Q4-6H PRN 06/17/18 06/17/18 History aspirin [Aspirin Childrens] 81 mg PO DAILY 06/17/18 06/17/18 History fexofenadine-pseudoephedrine 1 tab PO Q12H PRN 06/17/18 06/17/18 History [Georgette-D 12 Hour] irbesartan 300 mg PO DAILY 06/17/18 06/17/18 History meclizine 25 mg PO TID PRN 06/17/18 06/17/18 History metformin 500 mg PO BID 06/17/18 06/17/18 History metoprolol tartrate 25 mg PO DAILY 06/17/18 06/17/18 History nitroglycerin 0.4 mg SUBLINGUAL Q5-15M PRN 06/17/18 06/17/18 History omeprazole 40 mg PO DAILY 06/17/18 06/17/18 History ranitidine HCl 300 mg PO DAILY 06/17/18 06/17/18 History rosuvastatin 10 mg PO DAILY 06/17/18 06/17/18 History sertraline 100 mg PO DAILY 06/17/18 06/17/18 History temazepam 15 mg PO HS PRN 06/17/18 06/17/18 History timolol 1 drp OPHTHALMIC (EYE) BID 06/17/18 06/17/18 History vitamin T56-hosxo acid 1 mg PO DAILY 06/17/18 06/17/18 History Physical Exam Vital signs: Vital Signs 06/18/18 13:00 06/18/18 13:07 06/18/18 14:00 Temperature 98.5 F Pulse Rate 48 L 49 L 46 L Respiratory Rate 17 Blood Pressure 128/65 Pulse Oximetry 96 06/18/18 15:00 06/18/18 16:00 06/18/18 17:00 Temperature Pulse Rate 54 L 48 L 52 L Respiratory Rate Blood Pressure Pulse Oximetry 96 06/18/18 18:00 06/18/18 19:00 06/18/18 20:00 Temperature 98.6 F Pulse Rate 48 L 50 L 53 L Respiratory Rate 16 Blood Pressure 131/62 Pulse Oximetry 06/18/18 21:00 06/18/18 22:00 06/18/18 23:00 Temperature 97.9 F Pulse Rate 55 L 59 L 65 Respiratory Rate 16 Blood Pressure 141/71 H Pulse Oximetry 06/19/18 00:00 06/19/18 01:00 06/19/18 02:00 Temperature Pulse Rate 52 L 50 L 52 L Respiratory Rate Blood Pressure Pulse Oximetry 06/19/18 03:00 06/19/18 04:00 06/19/18 05:00 Temperature 98.4 F Pulse Rate 58 L 58 L 51 L Respiratory Rate 16 Blood Pressure 159/72 H Pulse Oximetry 06/19/18 06:00 06/19/18 07:00 06/19/18 08:00 Temperature 98.0 F Pulse Rate 55 L 60 66 Respiratory Rate 18 Blood Pressure 152/66 H Pulse Oximetry 98 06/19/18 09:00 06/19/18 10:00 06/19/18 11:00 Temperature 98.2 F Pulse Rate 62 89 61 Respiratory Rate 18 Blood Pressure 133/63 Pulse Oximetry 96 06/19/18 12:00 Temperature Pulse Rate 61 Respiratory Rate Blood Pressure Pulse Oximetry Intake & Output 06/18/18 06/19/18 06/19/18 18:59 06:59 18:59 Intake Total 540 / 540 240 / 240 Output Total 600 / 600 400 / 400 Balance -60 / -60 -160 / -160 Weight 94.5 kg Intake: Oral 240 / 240 240 / 240 Anesthesia Amount 300 / 300 Output: Urine 600 / 600 400 / 400 Other: Date of Last Bowel Movement 06/18/18 # Bowel Movements 1 Narrative: GENERAL: Very pleasant 58-year-old female in bed appears in not acute distress at this time. CARDIOVASCULAR: Regular rate and rhythm without murmurs, gallops, or rubs. RESPIRATORY: Breath sounds equal bilaterally. No accessory muscle use. GASTROINTESTINAL: Abdomen soft, non-tender, nondistended. MUSCULOSKELETAL: No cyanosis, or edema. BACK: Nontender without obvious deformity. No CVA tenderness. Results 06/19/18 03:31 06/19/18 03:31 Cardiac Enzymes 06/17/18 06/18/18 Range/Units 16:16 07:00 AST 44 H (15-37) U/L Troponin I 2.61 H* D (0.02-0.05) ng/mL Coagulation 06/17/18 06/17/18 06/18/18 Range/Units 16:16 23:16 07:00 APTT 41.5 H 43.5 H 46.3 H (24.3-30.1) sec CBC 06/18/18 06/19/18 Range/Units 07:00 03:31 WBC 5.9 5.2 (4.0-11.0) th/mm3 RBC 4.02 3.77 L (4.00-5.30) mil/mm3 Hgb 10.8 L 10.2 L (11.6-15.3) gm/dL Hct 32.6 L 30.7 L (35.0-46.0) % Plt Count 204 204 (150-450) th/mm3 Neut # (Auto) 3.6 3.6 (1.8-7.7) th/mm3 Lymph # (Auto) 1.7 1.1 (1.0-4.8) th/mm3 [place] # (Auto) 0.4 0.4 (0.0-0.9) th/mm3 Eos # (Auto) 0.2 0.1 (0.0-0.4) th/mm3 Baso # (Auto) 0.0 0.0 (0.0-0.2) th/mm3 Comprehensive Metabolic Panel 06/18/18 06/19/18 Range/Units 07:00 03:31 Sodium 145 143 (136-145) meq/L Potassium 4.0 3.8 (3.5-5.1) meq/L Chloride 110 H 108 H (98-107) meq/L Carbon Dioxide 26.0 26.8 (21.0-32.0) meq/L BUN 13 11 (7-18) mg/dL Creatinine 0.95 0.88 (0.50-1.00) mg/dL Calcium 7.9 L 8.5 (8.5-10.1) mg/dL AST 44 H (15-37) U/L ALT 29 (10-53) U/L Alkaline Phosphatase 65 (45-117) U/L Total Protein 6.1 L D (6.4-8.2) g/dL Albumin 3.3 L (3.4-5.0) g/dL Intake and Output 06/18/18 06/19/18 06/19/18 22:59 06:59 14:59 Intake Total 240 / 240 240 / 240 Output Total 600 / 600 400 / 400 Balance -360 / -360 -160 / -160 Intake: Oral 240 / 240 240 / 240 Output: Urine 600 / 600 400 / 400 Other: Date of Last Bowel Movement 06/18/18 # Bowel Movements 1 Weight 94.5 kg Assessment and Plan - Assessment (1) NSTEMI (non-ST elevated myocardial infarction) Code(s): I21.4 - Non-ST elevation (NSTEMI) myocardial infarction Status: Acute (2) CAD (coronary artery disease) Code(s): I25.10 - Atherosclerotic heart disease of [place] coronary artery without angina pectoris Status: Acute (3) HTN (hypertension) Code(s): I10 - Essential (primary) hypertension Status: Acute (4) Bradycardia Code(s): R00.1 - Bradycardia, unspecified Status: Acute - Plan 1) NSTEMI s/p PCI of PLC with SANDEEP ASA/Plavix Currently on BB therapy but bradycardia Will continue for now, feels like her tiredness was due to CAD, if still tired in a few weeks then will stop BB Con't on Statin/ARB therapy 2) Cardiovascularly stable for discharge Looking to change her insurance and follow up with 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
== END 2018-06-19 12:40 | disposition home or self-care (01) ==
LOC: NEPE 03:30 → NEDA 06:15 → NEDH 09:12 → HCPC 14:52
PROVIDERS: ADMIT Hospitalist; ATTEND Hospitalist